=== PATIENT | female | born 1990 | race Caucasian/White ===

== ENCOUNTER 2016-09-08 06:36 | Inpatient (IN) | payer MEDICAID ==
[2016-09-08] MEDS ORDERED: OXYTOCIN/NORMAL SALINE 1,000 ML IV PRN ×2 (06:48→06:50)
[2016-09-08] MEDS ORDERED: RINGERS SOLUTION,LACTATED 300 ML IV ONE ×2 (06:48→06:50)
[2016-09-08] MEDS ORDERED: RINGERS SOLUTION,LACTATED 1,000 ML IV PRN ×2 (06:48→06:50)
[2016-09-08 07:04] LABS: APPEARANCE,URINE CLOUDY; BILIRUBIN,URINE NEGATIVE (NEGATIVE); GLUCOSE, URINE NEGATIVE (NEGATIVE); KETONES,URINE NEGATIVE (NEGATIVE); LEUKOCYTE ESTERASE,URINE LARGE (NEGATIVE); NITRITE,URINE NEGATIVE (NEGATIVE); PROTEIN,URINE NEGATIVE (NEGATIVE); URINE SPECIFIC GRAVITY 1.008; UROBILINOGEN,URINE NEGATIVE mg/dL (<2.0)
[2016-09-08 07:28] LABS: URINE BARBITURATES SCREEN NEGATIVE; URINE METHADONE SCREEN NEGATIVE; URINE PHENCYCLIDINE SCREEN NEGATIVE
[2016-09-08] MEDS ORDERED: OXYTOCIN/NORMAL SALINE 20 UNIT/1,000 ML RTUINJ ONE (07:42)
[2016-09-08 07:49] LABS: ABSOLUTE EOSINOPHILS # (AUTO) 0.1 10^3/uL (0.0-0.6); ABSOLUTE LYMPHOCYTES (AUTO) 1.9 10^3/uL (0.5-4.7); ABSOLUTE NEUT (AUTO) 5.8 10^3/uL (1.7-8.2); BASOPHILS % (AUTO) 0.4 % (0-2); EOSINOPHILS % (AUTO) 1.3 % (0-6); HEMATOCRIT 33.5 % (36.0-47.0); HEMOGLOBIN 10.6 g/dL (12.0-15.5); HGB HCT DIFFERENCE -1.7; LYMPHOCYTES % (AUTO) 21.4 % (13-45); MEAN CORPUSCULAR HEMOGLOBIN 28.2 pg (27.0-33.4); MEAN CORPUSCULAR HGB CONC 31.7 g/dL (32.0-36.0); MEAN CORPUSCULAR VOLUME 89 fl (80-97); MONOCYTES % (AUTO) 11.5 % (3-13); RED BLOOD COUNT 3.77 10^6/uL (3.72-5.28); RED CELL DISTRIBUTION WIDTH 13.6 % (11.5-14.0); SEGMENTED NEUTROPHILS % (AUTO) 65.4 % (42-78); WHITE BLOOD COUNT 8.9 10^3/uL (4.0-10.5)
--- NOTE | 2016-09-08 08:01 | L&D Flow Sheet ---
LD Flowsheet Datetime Report Generated by CPN: 09/08/2016 08:00 Datetime: 09/08/2016 07:05 Patient Care IV/Blood Work: IV Started; IV Bolus Started; IV Infusing per Order; New IV Bag Hung (Ashely Errichiello, RN) Datetime: 09/08/2016 07:02 Procedures: Consents Signed (Ashely Long RN)
--- NOTE | 2016-09-08 10:01 | L&D Flow Sheet ---
LD Flowsheet Datetime Report Generated by CPN: 09/08/2016 10:00 Datetime: 09/08/2016 09:15 Monitor Mode: External; Palpation (BRIONNA De Los Santos) Frequency (min): 3-5 (BRIONNA De Los Santos) Quality: Mild (BRIONNA De Los Santos) Duration (sec): 60-90 (BRIONNA De Los Santos) Duration Criteria: Less than Two 120 Second Contractions (BRIONNA De Los Santos) Pattern: Normal: <= 5 Contractions in 10 Minutes (Marla Thompson RNC) Resting Tone (Palpate): Relaxed (Marla Thompson RNC) Monitor Mode: External US (BRIONNA De Los Santos) FHR Baseline Rate : 125 (BRIONNA De Los Santos) Variability: Moderate 6-25 bpm (Marla Thompson RNC) Accelerations: 15X15 (Marla Thompson RNC) Decelerations: None (BRIONNA De Los Santos) Pitocin (milliunit): Pitocin Increased to (milliunits) @ 4 (Marla Jay, RNC) Datetime: 09/08/2016 09:12 NBP Sys/Faye/Mean (mmHg): 111 (QS system process) : 70 (QS system process) : 84 (QS system process) Pulse: 90 (QS system process) LaborFlag: Labor (QS system process) Datetime: 09/08/2016 09:00 Monitor Mode: External; Palpation (Marla Thompson RNC) Frequency (min): 2-4 (Marla Thompson RNC) Quality: Mild (Marla Thompson RNC) Duration (sec): 50-80 (Marla Thompson, RNC) Duration Criteria: Less than Two 120 Second Contractions (Marla Thompson RNC) Pattern: Normal: <= 5 Contractions in 10 Minutes (Marla Thompson RNC) Resting Tone (Palpate): Relaxed (Marla Thompson RNC) Monitor Mode: External US (Marla Thompson RNC) FHR Baseline Rate : 125 (Marla Thompson RNC) Variability: Moderate 6-25 bpm (Marla Thompson RNC) Accelerations: None (Marla Jay, RNC) Decelerations: None (Marla Jay, RNC) Datetime: 09/08/2016 08:45 Monitor Mode: External; Palpation (Marla Jay, RNC) Frequency (min): 5-8 (Marla Jay, RNC) Quality: Mild (Marla Jay, RNC) Duration (sec): 50-80 (Marla Jay, RNC) Duration Criteria: Less than Two 120 Second Contractions (Marla Jay, RNC) Pattern: Normal: <= 5 Contractions in 10 Minutes (Marla Jay, RNC) Resting Tone (Palpate): Relaxed (Marla Jay, RNC) Monitor Mode: External US (Marla Jay, RNC) FHR Baseline Rate : 135 (Marla Jay, RNC) Variability: Moderate 6-25 bpm (Marla Jay, RNC) Accelerations: None (Marla Jay, RNC) Decelerations: None (Marla Jay, RNC) Datetime: 09/08/2016 08:42 NBP Sys/Faye/Mean (mmHg): 107 (QS system process) : 65 (QS system process) : 81 (QS system process) Pulse: 96 (QS system process) LaborFlag: Labor (QS system process) Datetime: 09/08/2016 08:30 Monitor Mode: External; Palpation (Marla Jay, RNC) Frequency (min): 3-5 (Marla Jay, RNC) Quality: Mild (Marla Jay, RNC) Duration (sec): 50-80 (Marla Jay, RNC) Duration Criteria: Less than Two 120 Second Contractions (Marla Jay, RNC) Pattern: Normal: <= 5 Contractions in 10 Minutes (Marla Jay, RNC) Resting Tone (Palpate): Relaxed (Marla Jay, RNC) Monitor Mode: External US (Marla Jay, RNC) FHR Baseline Rate : 135 (Marla Jay, RNC) Variability: Moderate 6-25 bpm (Marla Jay, RNC) Accelerations: None (Marla Jay, RNC) Decelerations: None (Marla Jay, RNC) Datetime: 09/08/2016 08:15 Pitocin (milliunit): Pitocin Started (milliunits) @ 2; Pitocin 20 Units in 1000ml NS (BRIONNA De Los Santos) Datetime: 09/08/2016 08:12 NBP Sys/Faye/Mean (mmHg): 114 (QS system process) : 68 (QS system process) : 85 (QS system process) Pulse: 88 (QS system process) Pain Scale: 0 (BRIONNA De Los Santos) Pain Presence: None/Denies (BRIONNA De Los Santos) Level of Consciousness: Fully Conscious (BRIONNA De Los Santos) DTR's/Clonus: DTRs 2+; No Clonus (BRIONNA De Los Santos) Headache: Denies (BRIONNA De Los Santos) Breath Sounds, Left: Clear and Equal (BRIONNA De Los Santos) Breath Sounds, Right: Clear and Equal (BRIONNA De Los Santos) Nausea/Vomiting: Denies (BRIONNA De Los Santos) RUQ Epigastric Pain: Denies (Marla Thompson RNJess) Comfort Measures: Breathing/Relaxation; Rocking Chair (BRIONNA De Los Santos) Instructional Method: Verbal; Patient Instructed; Family/Support Person Instructed; Verbalized Understanding (BRIONNA De Los Santos) Plan of Care: Plan of Care Discussed; Labor; Induction (BRIONNA De Los Santos) Unit Routine: [place] to Room; Call Banks; Bed; Handwashing; Bathroom Privileges (BRIONNA De Los Santos) Labor/Induction: Labor Stages; Induction; Artificial Rupture of Membranes; Interventions; Activity (BRIONNA De Los Santos) Pain Management: Epidural; PRN Medications; Pain Scale/Goals; Comfort Measures (BRIONNA De Los Santos) Medications: Antibiotics; Pitocin (BRIONNA De Los Santos) LaborFlag: Labor (QS system process) Datetime: 09/08/2016 08:00 Monitor Mode: External; Palpation (BRIONNA De Los Santos) Frequency (min): 5-9 (BRIONNA De Los Santos) Quality: Mild (BRIONNA De Los Santos) Duration (sec): 60-90 (BRIONNA De Los Santos) Duration Criteria: Less than Two 120 Second Contractions (BRIONNA De Los Santos) Pattern: Normal: <= 5 Contractions in 10 Minutes (BRIONNA De Los Santos) Resting Tone (Palpate): Relaxed (BRIONNA De Los Santos) Monitor Mode: External US (BRIONNA De Los Santos) FHR Baseline Rate : 135 (BRIONNA De Los Santos) Variability: Moderate 6-25 bpm (BRIONNA De Los Santos) Accelerations: None (BRIONNA De Los Santos) Decelerations: None (BRIONNA De Los Santos)
--- NOTE | 2016-09-08 12:00 | L&D Flow Sheet ---
LD Flowsheet Datetime Report Generated by CPN: 09/08/2016 12:00 Datetime: 09/08/2016 11:15 Monitor Mode: External; Palpation (Marla Jay, RNC) Frequency (min): 3-4 (Marla Jay, RNC) Quality: Mild/Moderate (Marla Jay, RNC) Duration (sec): 60-90 (Marla Jay, RNC) Duration Criteria: Less than Two 120 Second Contractions (Marla Jay, RNC) Pattern: Normal: <= 5 Contractions in 10 Minutes (Marla Jay, RNC) Resting Tone (Palpate): Relaxed (Marla Jay, RNC) Monitor Mode: External US (Marla Jay, RNC) FHR Baseline Rate : 135 (Marla Jay, RNC) Variability: Moderate 6-25 bpm (Marla Jay, RNC) Accelerations: 15X15 (Marla Jay, RNC) Decelerations: None (Marla Jay, RNC) Datetime: 09/08/2016 11:00 Monitor Mode: External; Palpation (Marla Jay, RNC) Frequency (min): 3-4 (Marla Jay, RNC) Quality: Mild/Moderate (Marla Jay, RNC) Duration (sec): 60-90 (Marla Jay, RNC) Duration Criteria: Less than Two 120 Second Contractions (Marla Jay, RNC) Pattern: Normal: <= 5 Contractions in 10 Minutes (Marla Jay, RNC) Resting Tone (Palpate): Relaxed (Marla Jay, RNC) Monitor Mode: External US (Marla Jay, RNC) FHR Baseline Rate : 135 (Marla Jay, RNC) Variability: Moderate 6-25 bpm (Marla Jay, RNC) Accelerations: 15X15 (Marla Jay, RNC) Decelerations: None (Marla Jay, RNC) Pitocin (milliunit): Pitocin Increased to (milliunits) @ 16 (Marla Jay, RNC) Datetime: 09/08/2016 10:45 Monitor Mode: External; Palpation (Marla Jay, RNC) Frequency (min): 3-6 (Marla Thompson, RNC) Quality: Mild/Moderate (Marla Thompson, RNC) Duration (sec): 60-90 (Marla Jay, RNC) Duration Criteria: Less than Two 120 Second Contractions (Marladorothy Thompson, RNC) Pattern: Normal: <= 5 Contractions in 10 Minutes (Marlaria Thompson, RNC) Resting Tone (Palpate): Relaxed (Marla Thompson, RNC) Monitor Mode: External US (Marla Thompson, RNC) FHR Baseline Rate : 145 (Marla Jay, RNC) Variability: Moderate 6-25 bpm (Marla Jay, RNC) Accelerations: None (Marlaria Thompson, RNC) Decelerations: None (Marla Thompson, RNC) Pitocin (milliunit): Pitocin Increased to (milliunits) @ 14 (Marla Thompson, RNC) Datetime: 09/08/2016 10:30 Monitor Mode: External; Palpation (Marla Thompson, RNC) Frequency (min): 3-6 (Marla Thompson, RNC) Quality: Mild (Marla Thompson, RNC) Duration (sec): 60-90 (Marla Jay, RNC) Duration Criteria: Less than Two 120 Second Contractions (Marla Jay, RNC) Pattern: Normal: <= 5 Contractions in 10 Minutes (Marla Thompson, RNC) Resting Tone (Palpate): Relaxed (Marla Thompson, RNC) Monitor Mode: External US (Marla Thompson, RNC) FHR Baseline Rate : 135 (Marla Jay, RNC) Variability: Moderate 6-25 bpm (Marla Jay, RNC) Accelerations: 15X15 (Marla Thompson, RNC) Decelerations: None (Marla Thompson, RNC) Pitocin (milliunit): Pitocin Increased to (milliunits) @ 12 (Marla Thompson, RNC) Datetime: 09/08/2016 10:15 Monitor Mode: External; Palpation (Marla Thompson, RNC) Frequency (min): 3-6 (Marla Thompson, RNC) Quality: Mild/Moderate (Marla Thompson, RNC) Duration (sec): 60-120 (Marlaria Thompson, RNC) Duration Criteria: Less than Two 120 Second Contractions (Marla Thompson, RNC) Pattern: Normal: <= 5 Contractions in 10 Minutes (Marla Thompson, RNC) Resting Tone (Palpate): Relaxed (Marla Thompson, RNC) Monitor Mode: External US (Marla Thompson, RNC) FHR Baseline Rate : 135 (Marla Thompson, RNC) Variability: Moderate 6-25 bpm (Marla Thompson, RNC) Accelerations: 15X15 (Marla Thompson, RNC) Decelerations: None (Marla Thompson, RNC) Pitocin (milliunit): Pitocin Increased to (milliunits) @ 10 (Marla Thompson, RNC) Datetime: 09/08/2016 10:00 Frequency (min): 4-5 (Marla Thompson, ANTIONETTEC) Duration (sec): 60-120 (Marla Thompson, RNC) Duration Criteria: Less than Two 120 Second Contractions (Marla Thompson RNC) Pattern: Normal: <= 5 Contractions in 10 Minutes (Marla Thompson RNC) Resting Tone (Palpate): Relaxed (BRIONNA De Los Santos) Monitor Mode: External US (BRIONNA De Los Santos) FHR Baseline Rate : 135 (BRIONNA De Los Santos) Variability: Moderate 6-25 bpm (Marla Thompson RNC) Accelerations: 15X15 (BRIONNA De Los Santos) Decelerations: None (BRIONNA De Los Santos)
--- NOTE | 2016-09-08 13:28 | L&D Progress Notes ---
PROGRESS NOTES Datetime Report Generated by CPN: 09/08/2016 13:27 PROGRESS NOTE Impression Other: IOL-Stable Procedures: Sterile Vag Exam Plan: Continue Present Management Informed Consent Obtained: Vaginal Delivery Vital Signs : Reviewed; Within Normal Limits Comment: S: pt. reports mild discomfort with contractions Late Entry for noon O: VSS, pit @ 18mu/min, Cat I tracing, Cervix and contractions as stated above A: IOL @ 41wga for posterm -stable P: continue IOL, pt. desires to wait on AROM, will re-evaluate in 2hrs or earlier prn. Pt. asked questions and verbalized understanding. VAGINAL EXAM Dilatation: 3 Effacement: 70 Station: -1 Contractions: 2-3.5 MEMBRANES Membranes: Intact FETUS A Monitoring: External US FHR Category: Category I SIGNATURE SIGNATURE: [id number] Assignment: Mary Ann Lamb MD Signature: with User ID: [email or web address] : with User ID: [email or web address]
--- NOTE | 2016-09-08 14:00 | L&D Flow Sheet ---
LD Flowsheet Datetime Report Generated by CPN: 09/08/2016 14:00 Datetime: 09/08/2016 13:45 Monitor Mode: External; Palpation (Marla Thompson, RNC) Frequency (min): 2.5-4 (Marla Jay, RNC) Quality: Mild/Moderate (Marla Jay, RNC) Duration (sec): 60-120 (Marla Jay, RNC) Duration Criteria: Less than Two 120 Second Contractions (Marla Jay, RNC) Pattern: Normal: <= 5 Contractions in 10 Minutes (Marla Jay, RNC) Resting Tone (Palpate): Relaxed (Marla Jay, RNC) Monitor Mode: External US (Marla Jay, RNC) FHR Baseline Rate : 135 (Marla Jay, RNC) Variability: Moderate 6-25 bpm (Marla Jay, RNC) Accelerations: 15X15 (Marla Jay, RNC) Decelerations: None (Marla Jay, RNC) Datetime: 09/08/2016 13:42 NBP Sys/Faye/Mean (mmHg): 111 (QS system process) : 66 (QS system process) : 83 (QS system process) Pulse: 94 (QS system process) LaborFlag: Labor (QS system process) Datetime: 09/08/2016 13:30 Monitor Mode: External; Palpation (Marla Thompson RNC) Frequency (min): 2.5-4 (Marla Thompson, RNC) Quality: Mild (Marla Thompson RNC) Duration (sec): 60-90 (Marla Thompson, RNC) Duration Criteria: Less than Two 120 Second Contractions (Marla Thompson, RNC) Pattern: Normal: <= 5 Contractions in 10 Minutes (Marla Thompson, RNC) Resting Tone (Palpate): Relaxed (Marla Thompson RNC) Monitor Mode: External US (Marla Thompson RNC) FHR Baseline Rate : 135 (Marla Thompson, RNC) Variability: Moderate 6-25 bpm (Marla Thompson, RNC) Accelerations: 15X15 (Marla Thompson, RNC) Decelerations: None (Marla Jay, RNC) Pitocin (milliunit): Pitocin Increased to (milliunits) @ 20 (Marla Jay, RNC) Datetime: 09/08/2016 13:15 Monitor Mode: External; Palpation (Marla Jay, RNC) Frequency (min): 3-6 (Marla Jay, RNC) Quality: Mild (Marla Jay, RNC) Duration (sec): 60-90 (Marla Jay, RNC) Duration Criteria: Less than Two 120 Second Contractions (Marla Jay, RNC) Pattern: Normal: <= 5 Contractions in 10 Minutes (Marla Jay, RNC) Resting Tone (Palpate): Relaxed (Marla Jay, RNC) Monitor Mode: External US (Marla Jay, RNC) FHR Baseline Rate : 135 (Marla Jay, RNC) Variability: Moderate 6-25 bpm (Marla Jay, RNC) Accelerations: 15X15 (Marla Jay, RNC) Decelerations: None (Marla Jay, RNC) Datetime: 09/08/2016 13:00 Monitor Mode: External; Palpation (Marla Jay, RNC) Frequency (min): 2-3 (Marla Jay, RNC) Quality: Mild (Marla Jay, RNC) Duration (sec): 60-90 (Marla Jay, RNC) Duration Criteria: Less than Two 120 Second Contractions (Marla Jay, RNC) Pattern: Normal: <= 5 Contractions in 10 Minutes (Marla Jay, RNC) Resting Tone (Palpate): Relaxed (Marla Jay, RNC) Monitor Mode: External US (Marla Jay, RNC) FHR Baseline Rate : 135 (Marla Jay, RNC) Variability: Moderate 6-25 bpm (Marla Jay, RNC) Accelerations: 15X15 (Marla Jay, RNC) Decelerations: None (Marla Jay, RNC) Pitocin (milliunit): Pitocin Increased to (milliunits) @ 18 (Marla Jay, RNC) Datetime: 09/08/2016 12:43 NBP Sys/Faye/Mean (mmHg): 135 (QS system process) : 73 (QS system process) : 89 (QS system process) LaborFlag: Labor (QS system process) Datetime: 09/08/2016 12:30 Monitor Mode: External; Palpation (Marla Jay, RNC) Frequency (min): 2.5-3 (Marla Jay, RNC) Quality: Mild/Moderate (Marla Jay, RNC) Duration (sec): 60-90 (Marla Jay, RNC) Duration Criteria: Less than Two 120 Second Contractions (Marla Jay, RNC) Pattern: Normal: <= 5 Contractions in 10 Minutes (Marla Jay, RNC) Resting Tone (Palpate): Relaxed (Marla Jay, RNC) Monitor Mode: External US (Marla Jay, RNC) FHR Baseline Rate : 135 (Marla Jay, RNC) Variability: Moderate 6-25 bpm (Marla Jay, RNC) Accelerations: 15X15 (Marla Jay, RNC) Decelerations: None (Marla Jay, RNC) Datetime: 09/08/2016 12:15 Monitor Mode: External; Palpation (Marla Jay, RNC) Frequency (min): 2-4 (Marla Jay, RNC) Quality: Mild (Marla Jay, RNC) Duration (sec): 60-90 (Marla Jay, RNC) Duration Criteria: Less than Two 120 Second Contractions (Marla Jay, RNC) Pattern: Normal: <= 5 Contractions in 10 Minutes (Marla Jay, RNC) Resting Tone (Palpate): Relaxed (Marla Jay, RNC) Monitor Mode: External US (Marla Jay, RNC) FHR Baseline Rate : 135 (Marla Thompson RNC) Variability: Moderate 6-25 bpm (Marla Thompson, RNC) Accelerations: None (Marla Thompson, RNC) Decelerations: None (Marla Thompson, RNC) Datetime: 09/08/2016 12:12 NBP Sys/Faye/Mean (mmHg): 111 (QS system process) : 66 (QS system process) : 83 (QS system process) Pulse: 78 (QS system process) LaborFlag: Labor (QS system process) Datetime: 09/08/2016 12:00 Monitor Mode: External; Palpation (Marla Thompson RNC) Frequency (min): 2-3 (Marla Thompson RNC) Quality: Mild (Marla Thompson RNC) Duration (sec): 60-90 (Marla Thompson, RNC) Duration Criteria: Less than Two 120 Second Contractions (Marla Thompson RNC) Pattern: Normal: <= 5 Contractions in 10 Minutes (Marla Thompson RNC) Resting Tone (Palpate): Relaxed (BRIONNA De Los Santos) Monitor Mode: External US (BRIONNA De Los Santos) FHR Baseline Rate : 140 (BRIONNA De Los Santos) Variability: Moderate 6-25 bpm (BRIONNA De Los Santos) Accelerations: 15X15 (BRIONNA De Los Santos) Decelerations: None (BRIONNA De Los Santos)
--- NOTE | 2016-09-08 16:00 | L&D Flow Sheet ---
LD Flowsheet Datetime Report Generated by CPN: 09/08/2016 16:00 Datetime: 09/08/2016 15:41 IV/Blood Work: IV Bolus Started; IV Bag Number @ 3 (BRIONNA De Los Santos) Datetime: 09/08/2016 14:45 Monitor Mode: External; Palpation (BRIONNA De Los Santos) Frequency (min): 3-5 (BRIONNA De Los Santos) Quality: Mild/Moderate (BRIONNA De Los Santos) Duration (sec): 60-90 (Marla Jay, RNC) Duration Criteria: Less than Two 120 Second Contractions (Marla Jay, RNC) Pattern: Normal: <= 5 Contractions in 10 Minutes (Marla Jay, RNC) Resting Tone (Palpate): Relaxed (Marla Jay, RNC) Monitor Mode: External US (Marla Jay, RNC) FHR Baseline Rate : 135 (Marla Jay, RNC) Variability: Moderate 6-25 bpm (Marla Jay, RNC) Accelerations: 15X15 (Marla Jay, RNC) Decelerations: None (Marla Jay, RNC) Datetime: 09/08/2016 14:30 Monitor Mode: External; Palpation (Marla Jay, RNC) Frequency (min): 3-5 (Marla Jay, RNC) Quality: Mild/Moderate (Marla Jay, RNC) Duration (sec): 60-90 (Marla Jay, RNC) Duration Criteria: Less than Two 120 Second Contractions (Marla Jay, RNC) Pattern: Normal: <= 5 Contractions in 10 Minutes (Marla Jay, RNC) Resting Tone (Palpate): Relaxed (Marla Jay, RNC) Monitor Mode: External US (Marla Jay, RNC) FHR Baseline Rate : 135 (Marla Jay, RNC) Variability: Moderate 6-25 bpm (Marla Jay, RNC) Accelerations: 15X15 (Marla Jay, RNC) Decelerations: None (Marla Jay, RNC) Datetime: 09/08/2016 14:15 Monitor Mode: External; Palpation (Marla Jay, RNC) Frequency (min): 2-4 (Marla Jay, RNC) Quality: Mild/Moderate (Marla Jay, RNC) Duration (sec): 60-120 (Marla Jay, RNC) Duration Criteria: Less than Two 120 Second Contractions (Marla Jay, RNC) Pattern: Normal: <= 5 Contractions in 10 Minutes (Marla Jay, RNC) Resting Tone (Palpate): Relaxed (Marla Jay, RNC) Monitor Mode: External US (Marla Jay, RNC) FHR Baseline Rate : 135 (Marla Jay, RNC) Variability: Moderate 6-25 bpm (Marla Jay, RNC) Accelerations: 15X15 (Marla Jay, RNC) Decelerations: None (Marla Jay, RNC) Datetime: 09/08/2016 14:00 Monitor Mode: External; Palpation (Marla Jay, RNC) Frequency (min): 3-5 (Marla Jay, RNC) Quality: Mild/Moderate (Marla Jay, RNC) Duration (sec): 60-120 (Marla Jay, RNC) Duration Criteria: Less than Two 120 Second Contractions (BRIONNA De Los Santos) Pattern: Normal: <= 5 Contractions in 10 Minutes (BRIONNA De Los Santos) Resting Tone (Palpate): Relaxed (BRIONNA De Los Santos) Monitor Mode: External US (BRIONNA De Los Santos) FHR Baseline Rate : 145 (BRIONNA De Los Santos) Variability: Moderate 6-25 bpm (BRIONNA De Los Santos) Accelerations: 15X15 (BRIONNA De Los Santos) Decelerations: None (BRIONNA De Los Santos) Dilatation (cm): 3.5 (BRIONNA De Los Santos) Effacement (%): 50 (BRIONNA De Los Santos) Station: -1 (BRIONNA De Los Santos) Exam by: Dr. Lamb (BRIONNA De Los Santos) Membrane Status: Ruptured (BRIONNA De Los Santos) Membranes Rupture Method: Artificial (BRIONNA De Los Santos) Amniotic Fluid Color: Clear (BRIONNA De Los Santos) Amniotic Fluid Amount: Small (BRIONNA De Los Santos)
[2016-09-08] MEDS ORDERED: BUPIVACAINE HCL 0.25 % INJ/PF (2.5 MG/1 ML) 30 ML VIAL ONE (16:02)
[2016-09-08] MEDS ORDERED: EPHEDRINE SULFATE INJ 50 MG/1 ML AMPULE ONE (16:02)
[2016-09-08] MEDS ORDERED: FENTANYL/BUPIVACAINE/NS/PF 200 MCG/100 ML RTUINJ EPI ONE (16:02)
--- NOTE | 2016-09-08 16:49 | L&D Progress Notes ---
PROGRESS NOTES Datetime Report Generated by CPN: 09/08/2016 16:49 PROGRESS NOTE Procedures: Intrauterine Pressure Catheter Plan: Induction Vital Signs : Reviewed Comment: Pt comfortable with epidural. IUPC placed to guide induction bu mvus. FETUS A FHR Category: Category I FETUS C SIGNATURE: [id number] Signature: with User ID: [email or web address]
--- NOTE | 2016-09-08 18:00 | L&D Flow Sheet ---
LD Flowsheet Datetime Report Generated by CPN: 09/08/2016 18:00 Datetime: 09/08/2016 17:50 NBP Sys/Faye/Mean (mmHg): 92 (QS system process) : 60 (QS system process) : 72 (QS system process) Pulse: 96 (QS system process) LaborFlag: Labor (QS system process) Datetime: 09/08/2016 17:33 NBP Sys/Faye/Mean (mmHg): 108 (QS system process) : 65 (QS system process) : 79 (QS system process) Pulse: 76 (QS system process) LaborFlag: Labor (QS system process) Datetime: 09/08/2016 17:28 NBP Sys/Faye/Mean (mmHg): 92 (QS system process) : 55 (QS system process) : 69 (QS system process) Pulse: 110 (QS system process) LaborFlag: Labor (QS system process) Datetime: 09/08/2016 17:21 NBP Sys/Faye/Mean (mmHg): 92 (QS system process) : 54 (QS system process) : 69 (QS system process) Pulse: 92 (QS system process) LaborFlag: Labor (QS system process) Datetime: 09/08/2016 17:16 NBP Sys/Faye/Mean (mmHg): 94 (QS system process) : 51 (QS system process) : 68 (QS system process) Pulse: 93 (QS system process) LaborFlag: Labor (QS system process) Datetime: 09/08/2016 17:15 Monitor Mode: Internal (Marla Jay, RNC) Frequency (min): 2-3 (Marla Jay, RNC) Duration (sec): 60-90 (Marla Jay, RNC) Duration Criteria: Less than Two 120 Second Contractions (Marla Jay, RNC) Pattern: Normal: <= 5 Contractions in 10 Minutes (Marla Jay, RNC) Resting Tone (Palpate): Relaxed (Marla Jay, RNC) Monitor Mode: External US (Marla Ajy, RNC) FHR Baseline Rate : 130 (Marla Jay, RNC) Variability: Moderate 6-25 bpm (Marla Jay, RNC) Accelerations: None (Marla Jay, RNC) Decelerations: None (Marla Jay, RNC) Datetime: 09/08/2016 17:11 NBP Sys/Faye/Mean (mmHg): 95 (QS system process) : 50 (QS system process) : 66 (QS system process) Pulse: 100 (QS system process) LaborFlag: Labor (QS system process) Datetime: 09/08/2016 17:06 NBP Sys/Faye/Mean (mmHg): 96 (QS system process) : 54 (QS system process) : 70 (QS system process) Pulse: 101 (QS system process) LaborFlag: Labor (QS system process) Datetime: 09/08/2016 17:02 NBP Sys/Faye/Mean (mmHg): 102 (QS system process) : 56 (QS system process) : 73 (QS system process) Pulse: 96 (QS system process) LaborFlag: Labor (QS system process) Datetime: 09/08/2016 17:00 Monitor Mode: Internal (Marla Jay, RNC) Frequency (min): 3-5 (Marla Jay, RNC) Quality: Mild/Moderate (Marla Jay, RNC) Duration (sec): 60-90 (Marla Jay, RNC) Duration Criteria: Less than Two 120 Second Contractions (Marla Jay, RNC) Pattern: Normal: <= 5 Contractions in 10 Minutes (Marla Jay, RNC) Resting Tone (Palpate): Relaxed (Marla Jay, RNC) Resting Tone IUP (mmHg): 20 (Marla Jay, RNC) Intensity IUP (mmHg): 50 (Marla Jay, RNC) Contraction Comments: EXO=558 (Marla Jay, RNC) Monitor Mode: External US (Marla Jay, RNC) FHR Baseline Rate : 140 (Marla Jay, RNC) Variability: Moderate 6-25 bpm (Marla Jay, RNC) Accelerations: 15X15 (Marla Jay, RNC) Decelerations: None (Marla Jay, RNC) Datetime: 09/08/2016 16:53 NBP Sys/Faye/Mean (mmHg): 93 (QS system process) : 61 (QS system process) : 71 (QS system process) Pulse: 104 (QS system process) LaborFlag: Labor (QS system process) Datetime: 09/08/2016 16:48 NBP Sys/Faye/Mean (mmHg): 106 (QS system process) : 63 (QS system process) : 79 (QS system process) Pulse: 108 (QS system process) LaborFlag: Labor (QS system process) Datetime: 09/08/2016 16:44 Monitor Mode: External; Palpation (BRIONNA De Los Santos) Frequency (min): 3-5 (BRIONNA De Los Santos) Quality: Mild/Moderate (BRIONNA De Los Santos) Duration (sec): 60-90 (BRIONNA De Los Santos) Duration Criteria: Less than Two 120 Second Contractions (BRIONNA De Los Santos) Pattern: Normal: <= 5 Contractions in 10 Minutes (BRIONNA De Los Santos) Resting Tone (Palpate): Relaxed (Marla Jay, RNC) Monitor Mode: External US (Marla Thompson, RNC) FHR Baseline Rate : 125 (Marla Thompson, RNC) Variability: Moderate 6-25 bpm (Marla Thompson, RNC) Accelerations: 15X15 (Marla Thompson, RNC) Decelerations: None (Marla Thompson, RNC) Datetime: 09/08/2016 16:43 Monitor Interventions for UA: IUPC Inserted (Marla Thompson, RNC) Pitocin (milliunit): Pitocin Decreased to (milliunits) @ 10 (Marla Thompson, RNC) Datetime: 09/08/2016 16:42 NBP Sys/Faye/Mean (mmHg): 111 (QS system process) : 59 (QS system process) : 79 (QS system process) Pulse: 103 (QS system process) LaborFlag: Labor (QS system process) Datetime: 09/08/2016 16:36 NBP Sys/Faye/Mean (mmHg): 95 (QS system process) : 59 (QS system process) : 71 (QS system process) Pulse: 105 (QS system process) LaborFlag: Labor (QS system process) Datetime: 09/08/2016 16:35 I/O Interventions: Lewis Cath Inserted (Marla Jay, RNC) Datetime: 09/08/2016 16:34 NBP Sys/Faye/Mean (mmHg): 90 (QS system process) : 53 (QS system process) : 67 (QS system process) Pulse: 137 (QS system process) LaborFlag: Labor (QS system process) Datetime: 09/08/2016 16:32 NBP Sys/Faye/Mean (mmHg): 96 (QS system process) : 53 (QS system process) : 71 (QS system process) Pulse: 90 (QS system process) LaborFlag: Labor (QS system process) Datetime: 09/08/2016 16:30 NBP Sys/Faye/Mean (mmHg): 104 (QS system process) : 56 (QS system process) : 72 (QS system process) Pulse: 122 (QS system process) Monitor Mode: External; Palpation (BRIONNA De Los Santos) Frequency (min): 3-5 (BRIONNA De Los Santos) Quality: Mild/Moderate (BRIONNA De Los Santos) Duration (sec): 60-90 (BRIONNA De Los Santos) Duration Criteria: Less than Two 120 Second Contractions (BRIONNA De Los Santos) Pattern: Normal: <= 5 Contractions in 10 Minutes (BRIONNA De Los Santos) Resting Tone (Palpate): Relaxed (BRIONNA De Los Santos) Monitor Mode: External US (BRIONNA De Los Santos) FHR Baseline Rate : 135 (Marla Thompson, RNC) Variability: Moderate 6-25 bpm (Marla Thompson, RNC) Accelerations: None (Marla Thompson, RNC) Decelerations: None (Marla Thompson, RNC) LaborFlag: Labor (QS system process) Datetime: 09/08/2016 16:28 NBP Sys/Faye/Mean (mmHg): 108 (QS system process) : 56 (QS system process) : 73 (QS system process) Pulse: 108 (QS system process) LaborFlag: Labor (QS system process) Datetime: 09/08/2016 16:26 NBP Sys/Faye/Mean (mmHg): 112 (QS system process) : 55 (QS system process) : 78 (QS system process) Pulse: 102 (QS system process) LaborFlag: Labor (QS system process) Datetime: 09/08/2016 16:24 NBP Sys/Faye/Mean (mmHg): 118 (QS system process) : 66 (QS system process) : 87 (QS system process) Pulse: 100 (QS system process) Temperature (F): 98.2 (Marla Thompson [facility]) Temperature (C): 36.8 (QS system process) LaborFlag: Labor (QS system process) Datetime: 09/08/2016 16:22 NBP Sys/Faye/Mean (mmHg): 125 (QS system process) : 78 (QS system process) : 96 (QS system process) Pulse: 112 (QS system process) Epidural Procedure: Test Dose (BRIONNA De Los Santos) LaborFlag: Labor (QS system process) Datetime: 09/08/2016 16:21 Epidural Procedure: Test Dose; Loading Dose (Marla Thompson, RNC) Datetime: 09/08/2016 16:17 Epidural Positioning: Sitting (Marla Thompson, RNC) Datetime: 09/08/2016 16:15 Monitor Mode: External; Palpation (Marla Thompson, RNC) Frequency (min): 3-4 (Marla Thompson, RNC) Quality: Mild/Moderate (Marla Thompson, RNC) Duration (sec): 60-90 (Marla Thompson, RNC) Duration Criteria: Less than Two 120 Second Contractions (Marla Thompson, RNC) Pattern: Normal: <= 5 Contractions in 10 Minutes (Marla Thompson, RNC) Resting Tone (Palpate): Relaxed (Marla Thompson RNC) Monitor Mode: External US (Marla Thompson, RNC) FHR Baseline Rate : 135 (Marla Thompson, RNC) Variability: Moderate 6-25 bpm (Marla Thompson, RNC) Accelerations: 15X15 (Marla Thompson, RNC) Decelerations: None (BRIONNA De Los Santos) Datetime: 09/08/2016 16:06 Procedure Verify: Correct Patient Identity; Correct Side and Site are Marked; Accurate Procedure Consent Form; Agreement on Procedure to be Done; Correct Patient Position; Relevant Images and Results are Properly Labeled and Displayed; Addressed Need to Administer Antibiotics or Fluids for Irrigation; Safety Precautions Based on Patient History or Medication Use (BRIONNA De Los Santos) Anesthesia Plans: Epidural (BRIONNA De Los Santos) Epidural Positioning: Sitting (BRIONNA De Los Santos) Anesthesia Comments: Dr. Guzmán at for epidural placement (BRIONNA De Los Santos) Datetime: 09/08/2016 16:05 Patient Care Comments: Pt back to bed (BRIONNA De Los Santos) Datetime: 09/08/2016 16:00 Monitor Mode: External; Palpation (BRIONNA De Los Santos) Frequency (min): 2-2.5 (BRIONNA De Los Santos) Quality: Moderate (BRIONNA De Los Santos) Duration (sec): 60-120 (BRIONNA De Los Santos) Duration Criteria: Less than Two 120 Second Contractions (BRIONNA De Los Santos) Pattern: Normal: <= 5 Contractions in 10 Minutes (BRIONNA De Los Santos) Resting Tone (Palpate): Relaxed (BRIONNA De Los Santos) Monitor Mode: External US (BRIONNA De Los Santos) FHR Baseline Rate : 135 (BRIONNA De Los Santos) Variability: Moderate 6-25 bpm (BRIONNA De Los Santos) Accelerations: 15X15 (BRIONNA De Los Santos) Decelerations: None (BRIONNA De Los Santos)
--- NOTE | 2016-09-08 20:00 | L&D Flow Sheet ---
LD Flowsheet Datetime Report Generated by CPN: 09/08/2016 20:00 Datetime: 09/08/2016 19:50 NBP Sys/Faye/Mean (mmHg): 125 (QS system process) : 69 (QS system process) : 91 (QS system process) Pulse: 95 (QS system process) LaborFlag: Labor (QS system process) Datetime: 09/08/2016 19:45 Monitor Mode: Internal; Palpation (Mary Ann Seay RN) Frequency (min): 2.5-3 (Mary Ann Field, RN) Quality: Moderate (Mary Ann Seay, RN) Duration (sec): 50-70 (Mary Ann Seay, RN) Resting Tone (Palpate): Relaxed (Mary Ann Seay, RN) Resting Tone IUP (mmHg): 25 (Mary Ann Seay, RN) Intensity IUP (mmHg): 85 (Mary Ann Seay, RN) Contraction Comments: MVU: 225 (Mary Ann Seay, RN) Monitor Mode: External US (Mary Ann Seay, RN) FHR Baseline Rate : 130 (Mary Ann Seay, RN) Variability: Moderate 6-25 bpm (Mary Ann Seay, RN) Accelerations: 15X15 (Mary Ann Seay, RN) Decelerations: None (Mary Ann Seay, RN) Pitocin (milliunit): Pitocin Remains (milliunits) @ 14 (Mary Ann Seay, RN) Datetime: 09/08/2016 19:35 NBP Sys/Faye/Mean (mmHg): 123 (QS system process) : 61 (QS system process) : 86 (QS system process) Pulse: 93 (QS system process) LaborFlag: Labor (QS system process) Datetime: 09/08/2016 19:30 Monitor Mode: External; Palpation (Mary Ann Seay, RN) Frequency (min): 1.5-3.5 (Mary Ann Seay, RN) Quality: Moderate (Mary Ann , RN) Duration (sec): 60-80 (Mary Ann Field, RN) Resting Tone (Palpate): Relaxed (Mary Ann , RN) Resting Tone IUP (mmHg): 25 (Mary Ann Field, RN) Intensity IUP (mmHg): 95 (Mary Ann Field, RN) Contraction Comments: MVU: 195 (Mary Ann , RN) Monitor Mode: External US (Mary Ann Seay, RN) FHR Baseline Rate : 125 (Mary Ann , RN) Variability: Moderate 6-25 bpm (Mary Ann Field, RN) Accelerations: 10X10 (Mary Ann Field, RN) Decelerations: None (Mary Ann , RN) Pitocin (milliunit): Pitocin Increased to (milliunits) @ 16 (Mary Ann , RN) Datetime: 09/08/2016 19:29 Level of Consciousness: Fully Conscious (Mary nAn Seay, RN) DTR's/Clonus: DTRs 1+; No Clonus (Mary Ann , RN) Headache: Denies (Mary Ann Seay, RN) Breath Sounds, Left: Clear and Equal (Mary Ann , RN) Breath Sounds, Right: Clear and Equal (Mary Ann Field, RN) Nausea/Vomiting: Denies (Mary Ann , RN) RUQ Epigastric Pain: Denies (Mary Annpam Seay, RN) Datetime: 09/08/2016 19:20 NBP Sys/Faye/Mean (mmHg): 116 (QS system process) : 63 (QS system process) : 84 (QS system process) Pulse: 101 (QS system process) LaborFlag: Labor (QS system process) Datetime: 09/08/2016 19:15 Monitor Mode: Internal (Mary Ann Seay RN) Frequency (min): 1.5-4 (Mary Ann Seay RN) Quality: Moderate (Mary Ann Seay RN) Duration (sec): 60-90 (Mary Ann Seay RN) Resting Tone (Palpate): Relaxed (Mary Ann Seay RN) Resting Tone IUP (mmHg): 25 (Mary Ann Seay RN) Intensity IUP (mmHg): 85 (Mary Ann Seay RN) Contraction Comments: MVU: 225 (Mary Ann Seay RN) Monitor Mode: External US (Mary Ann Seay RN) FHR Baseline Rate : 135 (Mary Ann Seay RN) Variability: Moderate 6-25 bpm (Mary Ann Seay RN) Accelerations: 15X15 (Mary Ann Seay RN) Decelerations: None (Mary Ann Seay RN) Comments: Report to Basil Frank RN, Arielle Thompsno RNC out._ (BRIONNA De Los Santos) Pitocin (milliunit): Pitocin Remains (milliunits) @ 14 (Mary Ann Seay RN) Datetime: 09/08/2016 19:05 NBP Sys/Faye/Mean (mmHg): 119 (QS system process) : 68 (QS system process) : 88 (QS system process) Pulse: 100 (QS system process) LaborFlag: Labor (QS system process) Datetime: 09/08/2016 19:00 Monitor Mode: Internal (Kaylee Camp, RNC) Frequency (min): 1-3 (Kaylee Camp, RNC) Duration (sec): 50-90 (Kaylee Camp, RNC) Resting Tone (Palpate): Relaxed (Kaylee Camp, RNC) Resting Tone IUP (mmHg): 15 (Kaylee Camp, RNC) Intensity IUP (mmHg): 70 (Kaylee Camp, RNC) Contraction Comments: MVU 250 (Kaylee Camp, RNC) Monitor Mode: External US; Auscultation (Kaylee Camp, RNC) FHR Baseline Rate : 135 (Kaylee Camp, RNC) FHR Baseline Changes: No Baseline Change (Kaylee Camp, RNC) Variability: Moderate 6-25 bpm (Kaylee Camp, RNC) Accelerations: 15X15 (Kaylee Camp, RNC) Decelerations: Variable (Kaylee Camp, RNC) Datetime: 09/08/2016 18:52 Dilatation (cm): 4.5 (Marla Thompson, RNC) Effacement (%): 70 (Marla Thompson, RNC) Station: -1 (Marla Thompson, RNC) Exam by: Dr. Lamb (Marla Thompson, RNC) Vaginal Bleeding: Normal Show (Marla Thompson, RNC) Datetime: 09/08/2016 18:49 NBP Sys/Faye/Mean (mmHg): 103 (QS system process) : 57 (QS system process) : 75 (QS system process) Pulse: 97 (QS system process) LaborFlag: Labor (QS system process) Datetime: 09/08/2016 18:45 Monitor Mode: Internal (Marla Jay, RNC) Frequency (min): 3-5 (Marla Jay, RNC) Duration (sec): 60-90 (Marla Jay, RNC) Pattern: Normal: <= 5 Contractions in 10 Minutes (Marla Jay, RNC) Resting Tone (Palpate): Relaxed (Marla Jay, RNC) Resting Tone IUP (mmHg): 25 (Marla Jay, RNC) Intensity IUP (mmHg): 65 (Marla Jay, RNC) Contraction Comments: MVU: 265 (Marla Jay, RNC) Monitor Mode: External US (Marla Jay, RNC) FHR Baseline Rate : 135 (Marla Jay, RNC) Variability: Moderate 6-25 bpm (Marla Jay, RNC) Accelerations: None (Marla Jay, RNC) Decelerations: None (Marla Jay, RNC) Datetime: 09/08/2016 18:35 NBP Sys/Faye/Mean (mmHg): 101 (QS system process) : 58 (QS system process) : 76 (QS system process) Pulse: 88 (QS system process) LaborFlag: Labor (QS system process) Datetime: 09/08/2016 18:30 Monitor Mode: Internal (Marla Jay, RNC) Frequency (min): 3-5 (Marla Jay, RNC) Duration (sec): 60-90 (Marla Jay, RNC) Duration Criteria: Less than Two 120 Second Contractions (Marla Jay, RNC) Resting Tone IUP (mmHg): 25 (Marla Jay, RNC) Intensity IUP (mmHg): 45 (Marla Jay, RNC) Contraction Comments: MVU: 190 (Marla Jay, RNC) Monitor Mode: External US (Marla Jay, RNC) FHR Baseline Rate : 125 (Marla Jay, RNC) Variability: Moderate 6-25 bpm (Marla Jay, RNC) Accelerations: None (Marla Jay, RNC) Decelerations: None (Marla Jay, RNC) Datetime: 09/08/2016 18:20 Patient Position/Activity: Peanut Ball; Right Extreme (Marla Jay, RNC) Datetime: 09/08/2016 18:15 Monitor Mode: Internal (Marla Jay, RNC) Frequency (min): 4-5 (Marla Jay, RNC) Duration (sec): 60-90 (Marla Jay, RNC) Duration Criteria: Less than Two 120 Second Contractions (Marla Jay, RNC) Monitor Mode: External US (Marla Jay, RNC) FHR Baseline Rate : 135 (Marla Jay, RNC) Variability: Moderate 6-25 bpm (Marla Jay, RNC) Accelerations: 15X15 (Marla Jay, RNC) Decelerations: None (Marla Jay, RNC) Datetime: 09/08/2016 18:06 NBP Sys/Faye/Mean (mmHg): 117 (QS system process) : 68 (QS system process) : 87 (QS system process) Pulse: 99 (QS system process) LaborFlag: Labor (QS system process) Datetime: 09/08/2016 18:00 Monitor Mode: Internal (BRIONNA De Los Santos) Frequency (min): 4-6 (BRIONNA De Los Santos) Duration (sec): 60-90 (Marla Thompson RNC) Duration Criteria: Less than Two 120 Second Contractions (BRIONNA De Los Santos) Monitor Mode: External US (BRIONNA De Los Santos) FHR Baseline Rate : 145 (Marla Thompson RNC) Variability: Moderate 6-25 bpm (Marla Thompson RNC) Accelerations: 15X15 (Marla Thompson RNC) Decelerations: None (BRIONNA De Los Santos)
[2016-09-08] MEDS ORDERED: MISOPROSTOL 0.2 MG TABLET ONE (21:54)
[2016-09-08] MEDS ORDERED: LIDOCAINE 1% INJ-PF (10 MG/ML) 30 ML SDV ONE (21:54)
--- NOTE | 2016-09-08 22:00 | L&D Flow Sheet ---
LD Flowsheet Datetime Report Generated by CPN: 09/08/2016 22:00 Datetime: 09/08/2016 21:52 Dilatation (cm): 10.0 ([facility], ) Effacement (%): 100 ([facility], ) Station: 2 ([facility], ) Exam by: Dr. Lamb ([facility], ) Datetime: 09/08/2016 21:50 NBP Sys/Faye/Mean (mmHg): 105 (QS system process) : 58 (QS system process) : 77 (QS system process) Pulse: 103 (QS system process) LaborFlag: Labor (QS system process) Datetime: 09/08/2016 21:38 Patient Position/Activity: Right Lateral; Peanut Ball (Mary Ann Field, RN) Datetime: 09/08/2016 21:34 NBP Sys/Faye/Mean (mmHg): 90 (QS system process) : 56 (QS system process) : 67 (QS system process) Pulse: 99 (QS system process) LaborFlag: Labor (QS system process) Datetime: 09/08/2016 21:21 NBP Sys/Faye/Mean (mmHg): 108 (QS system process) : 53 (QS system process) : 75 (QS system process) Pulse: 90 (QS system process) LaborFlag: Labor (QS system process) Datetime: 09/08/2016 21:06 NBP Sys/Faye/Mean (mmHg): 110 (QS system process) : 59 (QS system process) : 79 (QS system process) Pulse: 95 (QS system process) LaborFlag: Labor (QS system process) Datetime: 09/08/2016 20:51 NBP Sys/Faye/Mean (mmHg): 98 (QS system process) : 62 (QS system process) : 74 (QS system process) Pulse: 91 (QS system process) LaborFlag: Labor (QS system process) Datetime: 09/08/2016 20:36 NBP Sys/Faye/Mean (mmHg): 131 (QS system process) : 56 (QS system process) : 80 (QS system process) Pulse: 88 (QS system process) LaborFlag: Labor (QS system process) Datetime: 09/08/2016 20:20 NBP Sys/Faye/Mean (mmHg): 105 (QS system process) : 55 (QS system process) : 69 (QS system process) Pulse: 99 (QS system process) LaborFlag: Labor (QS system process) Datetime: 09/08/2016 20:15 Monitor Mode: Internal; Palpation (Mary Ann Seay RN) Frequency (min): 1.5-3.5 (Mary Ann Seay, RN) Quality: Moderate (Mary Ann Seay, RN) Duration (sec): 50-60 (Mary Ann Seay, RN) Resting Tone (Palpate): Relaxed (Mary Ann Seay, RN) Monitor Mode: External US (Mary Ann Seay, RN) FHR Baseline Rate : 135 (Mary Ann Seay, RN) Variability: Moderate 6-25 bpm (Mary Ann Field, RN) Accelerations: 10X10 (Mary Ann Seay, RN) Decelerations: None (Mary Ann Seay, RN) Pitocin (milliunit): Pitocin Remains (milliunits) @ 16 (Mary Ann Field, RN) Datetime: 09/08/2016 20:05 NBP Sys/Faye/Mean (mmHg): 113 (QS system process) : 69 (QS system process) : 86 (QS system process) Pulse: 107 (QS system process) LaborFlag: Labor (QS system process) Datetime: 09/08/2016 20:00 Monitor Mode: Internal; Palpation (Mary Ann Seay, RN) Frequency (min): 2-3 (Mary Ann Seay RN) Quality: Moderate (Mary Ann Seay RN) Duration (sec): 50-60 (Mary Ann Seay RN) Resting Tone (Palpate): Relaxed (Mary Ann Seay RN) Resting Tone IUP (mmHg): 25 (Mary Ann Seay RN) Intensity IUP (mmHg): 80 (Mary Ann Seay RN) Contraction Comments: MVU: 220 (Mary Ann Seay RN) Monitor Mode: External US (Mary Ann Seay RN) FHR Baseline Rate : 140 (Mary Ann Seay RN) Variability: Moderate 6-25 bpm (Mary Ann Seay RN) Accelerations: 10X10 (Mary Ann Seay RN) Decelerations: Variable (MaryA nn Seay RN) Pitocin (milliunit): Pitocin Remains (milliunits) @ 16 (Mary Ann Seay RN)
[2016-09-09] MEDS ORDERED: MEASLES,MUMPS&RUBELLA VACC/PF 0.5 ML VIAL SUBCUT PRN (00:05)
[2016-09-09] MEDS ORDERED: DIBUCAINE 1% OINTMENT 28 GM TP PRN (00:05)
[2016-09-09] MEDS ORDERED: BENZOCAINE/MENTHOL AEROSOL SPRAY 56 ML TOP PRN (00:05)
[2016-09-09] MEDS ORDERED: DIPH/PERTUSS(ACELL)/TETANUS VAC/PF 0.5 ML SYR (>=10YO) IM PRN (00:05)
[2016-09-09] MEDS ORDERED: ACETAMINOPHEN WITH CODEINE #3 TABLET PO PRN ×2 (00:05)
[2016-09-09] MEDS ORDERED: ZOLPIDEM TARTRATE 5 MG TABLET PO PRN (00:05)
--- NOTE | 2016-09-09 00:48 | Delivery Summary ---
Del Sum A-C Datetime Report Generated by CPN: 09/09/2016 00:48 ADMISSION DATA Chief Complaint: Scheduled Induction of Labor Indication for Induction: Postterm Admission Impression: Postterm, Intrauterine Admit Provider Comments: pit indcution DELIVERY PERSONNEL Delivery Doctor:: Mary Ann Lamb, MD Labor and Delivery Nurse:: Mary Ann Field, microsoft exchange administrator Nurse:: Arleen Onel, RN MATERNAL INFORMATION Delivery Anesthesia: Epidural Medications After Delivery: Pitocin Bolus-Please Comment; Pitocin Drip 20 Units/1000ml NSS Estimated Blood Loss (ml): 200 Maternal Complications: None Provider Comments: Pt progressed to over intact perineum of female infant with apgars 9 and 9. Head delivered OA. Shoulders and body delivered easily. 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 Cord clamped and cut. Placenta spont and intact. Mom and baby doing well. LABOR SUMMARY EDC: 09/01/2016 00:00 No. Babies in Womb: 1 Attempted: No Labor Anesthesia: Epidural LABOR INFORMATION Reason for Induction: Post Dates Onset of Labor: 09/08/2016 08:12 Complete Dilatation: 09/08/2016 21:52 Oxytocin: Induction Group B Beta Strep: negative Antibiotics # of Doses: 0 Steroids Given: None Reason Steroids Not Administered: Not Applicable; Indication MEMBRANES Membranes Rupture Method: Artificial Rupture of Membranes: 09/08/2016 14:00 Length of Rupture (hr): 8.13 Amniotic Fluid Color: Clear Amniotic Fluid Amount: Small Amniotic Fluid Odor: Normal STAGES OF LABOR Stage 1 hr: 13 Stage 1 min: 40 Stage 2 hr: 0 Stage 2 min: 16 Stage 3 hr: 0 Stage 3 min: 3 Total Time in Labor hr: 13 Total Time in Labor min: 59 VAGINAL DELIVERY Episiotomy: None Laceration Extension: N/A Laceration Type: None Laceration Repair: Not Applicable BABY A INFORMATION Delivery Date/Time: 09/08/2016 22:08 Method of Delivery: Vaginal Born in Route : No : N/A Forceps: N/A Vacuum Extraction: N/A Shoulder Dystocia : No PRESENTATION/POSITION BABY A Presentation: Cephalic Cephalic Presentation: Vertex Vertex Position: Left Occipital Anterior Breech Presentation: N/A PLACENTA INFORMATION BABY A Placenta Delivery Time : 09/08/2016 22:11 Placenta Method of Delivery: Spontaneous Placenta Status: Delivered SCORES BABY A Heart Rate 1 min: >100 bpm Resp Effort 1 min: Good Cry Reflex Irritability 1 min: Cough or Sneeze or Pulls Away Muscle Tone 1 min: Active Motion Color 1 min: Body Mccamey, Extremities Blue SCORE 1 MIN: 9 Heart Rate 5 min: >100 bpm Resp Effort 5 min: Good Cry Reflex Irritability 5 min: Cough or Sneeze or Pulls Away Muscle Tone 5 min: Active Motion Color 5 min: Body Mccamey, Extremities Blue SCORE 5 MIN: 9 INFORMATION BABY A Gestational Age at Delivery: 41.0 Gestational Status: Late Term- 41- 41.6 Weeks Outcome : Liveborn Condition : Stable Sex: Female IDENTIFICATION BABY A Verification Date/Time: 09/08/2016 22:23 ID Band Number: [id number] Mother's Name Verified: Yes Infant RN Verifying : R Elpidio, RNC Additional Verifying Personnel: D Matthew, US WEIGHT/LENGTH BABY A Infant Birthweight (gm): 3250 Weight (lb): 7 Infant Weight (oz): 3 Infant Length (in): 19.50 Length (cm): 49.53 CORD INFORMATION BABY A No. 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
--- NOTE | 2016-09-09 01:15 | Admission Physical ---
Datetime Report Generated by CPN: 09/09/2016 01:14 CURRENT ADMISSION Hx Assessment: The History has been Reviewed and is Current Chief Complaint: Scheduled Induction of Labor Indication for Induction: Postterm Admit Plan: Initiate Labor Induction Protocol ALLERGIES Medication Allergies: No Medication Allergies: No Known Allergies (09/08/2016) Latex: No Latex Allergies Food Allergies: n/a Environmental Allergies: n/a OBSTETRICAL HISTORY EDC: 09/01/2016 00:00 : 3 Para: 1 Term: 1 IAB: 1 Livin Gestational Diabetes: No Rh Sensitization: No Incompetent Cervix: No MASOUD: No Infertility: No ART Treatment: No Uterine Anomaly: No IUGR: No Hx Previous C/S: No Macrosomia: No Hx Loss/Stillborn: No PIH: No Hx : No Placenta Previa/Abruption: No Depression/PP Depression: No PTL/PROM: No Post Hemorrhage: No Current Procedures: Ultrasound; NST Obstetrical History Comments: G1:EAB 2008 G2: 2010 G3: current preganancy SEE RECORDS Alcohol: No Marijuana : No Cocaine: No Other Illicit Drugs: No Cigarettes: Former Smoker. [id number] MEDICAL HISTORY Diabetes: No Pulmonary Disease (Asthma, TB): No Breast Disease: No Hypertension: No Brain Picker Surgery: No Heart Disease: No Hosp/Surgery: Yes Autoimmune Disorder: No Anesthetic Complications: No Kidney Disease: No Abnormal Pap Smear: No Neuro/Epilepsy: No Psychiatric Disorders: No Other Medical Diseases: No Hepatitis/Liver Disease: No Significant Family History: No Varicosities/Phlebitis: No Trauma/Violence : No Thyroid Dysfunction: No INFECTIOUS HISTORY Gonorrhea: No Genital Herpes: No Chlamydia: No Tuberculosis: No Syphilis: No Hepatitis: No HIV/AIDS Exposure: No Rash or Viral Illness: No HPV: No PHYSICAL EXAM General: Normal HEENT: Normal Neurologic: Normal Thyroid: Normal Heart: Normal Lungs: Normal Breast: Normal Back: Normal Abdomen: Normal Genitourinary Exam: Normal Extremities: Normal DTRs: Normal Pelvic Type: Adequate Physical Exam Comments: AROM clear VAGINAL EXAM Dilatation: 3 Effacement: 70 Station: -1 Contraction Comments: 2-3.5 MEMBRANES Membranes: Intact FETUS A EGA: 41.0 Monitoring: External US FHR Category: Category I Admit Comment: pit indcution PLANS FOR LABOR AND DELIVERY Labor and Delivery: None Pain Management: None Feeding Preference: Breast Benefit of Breast Feed Discussed: Yes Circumcision: N/A INFORMED CONSENT Informed Consent Obtained: Vaginal Delivery Signature: with User ID: [email or web address]
[2016-09-09] MEDS: IBUPROFEN 800 MG TABLET PO SCH ×3 (06:26→22:42)
--- NOTE | 2016-09-09 07:00 | L&D Flow Sheet ---
LD Flowsheet Datetime Report Generated by CPN: 09/09/2016 07:00 Datetime: 09/09/2016 00:04 NBP Sys/Faye/Mean (mmHg): 109 (QS system process) : 57 (QS system process) : 79 (QS system process) Pulse: 121 (QS system process) Datetime: 09/09/2016 00:00 Stage of : Recovery (Mayr Ann Seay RN) Temperature (F): 99.1 (Mary Ann Seay RN) Temperature (C): 37.3 (QS system process) Temperature Route: Axillary (Mary Ann Seay, RN) Datetime: 09/08/2016 23:50 NBP Sys/Faye/Mean (mmHg): 126 (QS system process) : 66 (QS system process) : 91 (QS system process) Pulse: 129 (QS system process) Datetime: 09/08/2016 23:45 Stage of : Recovery (Mary Ann Field, RN) Datetime: 09/08/2016 23:30 Stage of : Recovery (Mary Ann Field, RN) Datetime: 09/08/2016 23:15 Stage of : Recovery (Mary Ann Field, RN) Datetime: 09/08/2016 23:04 NBP Sys/Faye/Mean (mmHg): 110 (QS system process) : 64 (QS system process) : 82 (QS system process) Pulse: 121 (QS system process) Datetime: 09/08/2016 23:00 Stage of : Recovery (Mary Ann Field, RN) Datetime: 09/08/2016 22:49 NBP Sys/Faye/Mean (mmHg): 106 (QS system process) : 65 (QS system process) : 78 (QS system process) Pulse: 118 (QS system process) Datetime: 09/08/2016 22:45 Stage of : Recovery (Mary Ann Field, RN) Datetime: 09/08/2016 22:35 NBP Sys/Faye/Mean (mmHg): 111 (QS system process) : 68 (QS system process) : 85 (QS system process) Pulse: 133 (QS system process) Datetime: 09/08/2016 22:30 Stage of : Recovery (Mary Ann Field, RN) Datetime: 09/08/2016 22:20 NBP Sys/Faye/Mean (mmHg): 129 (QS system process) : 75 (QS system process) : 92 (QS system process) Pulse: 125 (QS system process) Datetime: 09/08/2016 22:15 Stage of : Recovery (Mary Ann Field, RN) Datetime: 09/08/2016 22:06 NBP Sys/Faye/Mean (mmHg): 133 (QS system process) : 95 (QS system process) : 108 (QS system process) Pulse: 113 (QS system process) LaborFlag: Labor (QS system process) Datetime: 09/08/2016 22:01 Pushing: Coached on Pushing; Urge to Push (Mary Ann Field, RN) Pushing Position: Pushing with Contractions (Mary Ann Field, RN) Datetime: 09/08/2016 22:00 Monitor Mode: Internal; Palpation (Mary Ann Field, RN) Frequency (min): 1.5-3.5 (Mary Ann Field, RN) Quality: Moderate to Strong (Mary Ann Field, RN) Duration (sec): 50-60 (Mary Ann Field, RN) Resting Tone (Palpate): Relaxed (Mary Ann Field, RN) Resting Tone IUP (mmHg): 25 (Mary Ann Field, RN) Intensity IUP (mmHg): 70 (Mary Ann Field, RN) Contraction Comments: MVU: 250 (Mary Ann Field, RN) Monitor Mode: External US (Mary Ann Field, RN) FHR Baseline Rate : 130 (Mary Ann Field, RN) Variability: Moderate 6-25 bpm (Mary Ann Field, RN) Accelerations: 15X15 (Mary Ann Field, RN) Decelerations: None (Mary Ann Field, RN) Pitocin (milliunit): Pitocin Remains (milliunits) @ 16 (Mary Ann Field, RN) Datetime: 09/08/2016 21:58 I/O Interventions: Lewis Discontinued (Mary Ann Field, RN) Datetime: 09/08/2016 21:52 Dilatation (cm): 10.0 (Mary Ann Seay, RN) Effacement (%): 100 (Mary Ann Seay, RN) [facility] 2 [facility] Exam by: Adonis ([facility], [facility] Datetime: 09/08/2016 21:51 Communication Comments: Dr. Lamb at bedside ([facility] Datetime: 09/08/2016 21:50 NBP Sys/Faye/Mean (mmHg): 105 (QS system process) : 58 (QS system process) : 77 (QS system process) Pulse: 103 (QS system process) LaborFlag: Labor (QS system process) Datetime: 09/08/2016 21:45 Monitor Mode: Internal; Palpation (Mary Ann Field, RN) Frequency (min): 2-3 (Mary Ann Field, RN) Quality: Moderate to Strong (Mary Ann Field, RN) Duration (sec): 50-60 (Mary Ann Field, RN) Resting Tone (Palpate): Relaxed (Mary Ann Field, RN) Resting Tone IUP (mmHg): 25 (Mary Ann Field, RN) Intensity IUP (mmHg): 80 (Mary Ann Field, RN) Contraction Comments: MVU: 220 (Mary Ann Field, RN) Monitor Mode: External US (Mary Ann Field, RN) FHR Baseline Rate : 130 (Mary Ann Field, RN) Variability: Moderate 6-25 bpm (Mary Ann Field, RN) Accelerations: 15X15 (Mary Ann Field, RN) Decelerations: Variable (Mary Ann Field, RN) Pitocin (milliunit): Pitocin Remains (milliunits) @ 16 (Mary Ann Field, RN) Datetime: 09/08/2016 21:38 Patient Position/Activity: Right Lateral; Peanut Ball (Mary Ann Field, RN) Datetime: 09/08/2016 21:34 NBP Sys/Faye/Mean (mmHg): 90 (QS system process) : 56 (QS system process) : 67 (QS system process) Pulse: 99 (QS system process) LaborFlag: Labor (QS system process) Datetime: 09/08/2016 21:30 Monitor Mode: Internal; Palpation (Mary Ann Seay RN) Frequency (min): 2-3 (Mary Ann Seay RN) Quality: Moderate to Strong (Mary Ann Seay RN) Duration (sec): 50-60 (Mary Ann Seay RN) Resting Tone (Palpate): Relaxed (Mary Ann Seay RN) Resting Tone IUP (mmHg): 25 (Mary Ann Seay, RN) Intensity IUP (mmHg): 80 (Mary Ann Seay, RN) Contraction Comments: MVU: 220 (Mary Ann Seay RN) Monitor Mode: External US (Mary Ann Seay RN) FHR Baseline Rate : 130 (Mary Ann Seay RN) Variability: Moderate 6-25 bpm (Mary Ann Seay RN) Accelerations: 15X15 (Mary Ann Seay RN) Decelerations: None (Mary Ann Seay RN) Pitocin (milliunit): Pitocin Remains (milliunits) @ 16 (Mary Ann Seay RN) Datetime: 09/08/2016 21:21 NBP Sys/Faye/Mean (mmHg): 108 (QS system process) : 53 (QS system process) : 75 (QS system process) Pulse: 90 (QS system process) LaborFlag: Labor (QS system process) Datetime: 09/08/2016 21:15 Monitor Mode: Internal; Palpation (Mary Ann Seay RN) Frequency (min): 2-3.5 (Mary Ann Seay RN) Quality: Moderate to Strong (Mary Ann Seay RN) Duration (sec): 50-60 (Mary Ann Seay RN) Resting Tone (Palpate): Relaxed (Mary Ann Seay RN) Resting Tone IUP (mmHg): 25 (Mary Ann Seay RN) Intensity IUP (mmHg): 80 (Mary Ann Seay RN) Contraction Comments: MVU: 225 (Mary Ann Seay RN) Monitor Mode: External US (Mary Ann Seay RN) FHR Baseline Rate : 130 (Mary Ann Seay RN) Variability: Moderate 6-25 bpm (Mary Ann Seay, RN) Accelerations: 15X15 (Mary Ann Seay, RN) Decelerations: Variable (Mary Ann Seay, RN) Pitocin (milliunit): Pitocin Remains (milliunits) @ 16 (Mary Ann Seay, RN) Datetime: 09/08/2016 21:06 NBP Sys/Faye/Mean (mmHg): 110 (QS system process) : 59 (QS system process) : 79 (QS system process) Pulse: 95 (QS system process) LaborFlag: Labor (QS system process) Datetime: 09/08/2016 21:00 Monitor Mode: External; Palpation (Mary Ann Seay, RN) Frequency (min): 2.5-4 (Mary Ann Seay, RN) Quality: Moderate to Strong (Mary Ann Seay, RN) Duration (sec): 50-60 (Mary Ann Seay, RN) Resting Tone (Palpate): Relaxed (Mary Ann Seay, RN) Resting Tone IUP (mmHg): 25 (Mary Ann Seay, RN) Intensity IUP (mmHg): 85 (Mary Ann Seay, RN) Contraction Comments: MVU: 175 (Mary Ann Seay, RN) Monitor Mode: External US (Mary Ann Seay, RN) FHR Baseline Rate : 145 (Mary Ann Seay, RN) Variability: Moderate 6-25 bpm (Mary Ann Seay, RN) Accelerations: 10X10 (Mary Ann Seay, RN) Decelerations: Early; Variable (Mary Ann Seay, RN) Pitocin (milliunit): Pitocin Remains (milliunits) @ 16 (Mary Ann Seay, RN) Datetime: 09/08/2016 20:51 NBP Sys/Faye/Mean (mmHg): 98 (QS system process) : 62 (QS system process) : 74 (QS system process) Pulse: 91 (QS system process) LaborFlag: Labor (QS system process) Datetime: 09/08/2016 20:45 Monitor Mode: Internal; Palpation (Mary Ann Seay, RN) Frequency (min): 2-3.5 (Mary Ann Seay, RN) Quality: Moderate to Strong (Mary Ann Seay RN) Duration (sec): 40-60 (Mary Ann Field, RN) Resting Tone (Palpate): Relaxed (Mary Ann Field, RN) Resting Tone IUP (mmHg): 25 (Mary Ann Field, RN) Intensity IUP (mmHg): 85 (Mary Ann Field, RN) Contraction Comments: MVU: 245 [facility] Monitor Mode: External US (Mary Ann Field, RN) FHR Baseline Rate : 130 (Mary Ann Field, RN) Variability: Moderate 6-25 bpm (Mary Ann [facility], RN) Accelerations: 10X10 ([facility]) Decelerations: Early; Variable [facility] Pitocin (milliunit): Pitocin Remains (milliunits) @ 16 ([facility], RN) Datetime: 09/08/2016 20:36 NBP Sys/Faye/Mean (mmHg): 131 (QS system process) : 56 (QS system process) : 80 (QS system process) Pulse: 88 (QS system process) LaborFlag: Labor (QS system process) Datetime: 09/08/2016 20:30 Monitor Mode: Internal; Palpation (Mary Ann Seay, RN) Frequency (min): 1.5-4.5 (Mary Ann Seay, RN) Quality: Moderate (Mary Ann Seay, RN) Duration (sec): 50-60 (Mary Ann Seay, RN) Resting Tone (Palpate): Relaxed (Mary Ann Seay, RN) Resting Tone IUP (mmHg): 25 (Mary Ann Seay, RN) Intensity IUP (mmHg): 90 (Mary Ann Seay, RN) Contraction Comments: MVU: 275 (Mary Ann Seay, RN) Monitor Mode: External US (Mary Ann Seay, RN) FHR Baseline Rate : 135 (Mary Ann Seay, RN) Variability: Moderate 6-25 bpm (Mary Ann Seay, RN) Accelerations: None (Mary Ann Seay, RN) Decelerations: Early (Mary Ann Seay, RN) Pitocin (milliunit): Pitocin Remains (milliunits) @ 16 (Mary Ann Seay, RN) Datetime: 09/08/2016 20:20 NBP Sys/Faye/Mean (mmHg): 105 (QS system process) : 55 (QS system process) : 69 (QS system process) Pulse: 99 (QS system process) LaborFlag: Labor (QS system process) Datetime: 09/08/2016 20:15 Monitor Mode: Internal; Palpation (Mary Ann Field, RN) Frequency (min): 1.5-3.5 (Mary Ann Field, RN) Quality: Moderate (Mary Ann Field, RN) Duration (sec): 50-60 (Mary Ann Field, RN) Resting Tone (Palpate): Relaxed (Mary Ann Field, RN) Monitor Mode: External US (Mary Ann Field, RN) FHR Baseline Rate : 135 (Mary Ann Field, RN) Variability: Moderate 6-25 bpm (Mary Ann Field, RN) Accelerations: 10X10 (Mary Ann Field, RN) Decelerations: None (Mary Ann Field, RN) Pitocin (milliunit): Pitocin Remains (milliunits) @ 16 (Mary Ann Field, RN) Datetime: 09/08/2016 20:05 NBP Sys/Faye/Mean (mmHg): 113 (QS system process) : 69 (QS system process) : 86 (QS system process) Pulse: 107 (QS system process) LaborFlag: Labor (QS system process) Datetime: 09/08/2016 20:00 Monitor Mode: Internal; Palpation (Mary Ann Seay, RN) Frequency (min): 2-3 (Mary Ann Seay, RN) Quality: Moderate (Mary Ann Seay, RN) Duration (sec): 50-60 (Mary Ann , RN) Resting Tone (Palpate): Relaxed (Mary Ann Field, RN) Resting Tone IUP (mmHg): 25 (Mary Ann Field, RN) Intensity IUP (mmHg): 80 (Mary Ann Field, RN) Contraction Comments: MVU: 220 (Mary Ann , RN) Monitor Mode: External US (Mary Ann , RN) FHR Baseline Rate : 140 (Mary Ann Field, RN) Variability: Moderate 6-25 bpm (Mary Ann Field, RN) Accelerations: 10X10 [facility] Decelerations: Variable ([facility], RN) Pitocin (milliunit): Pitocin Remains (milliunits) @ 16 ([facility], RN) Datetime: 09/08/2016 19:50 NBP Sys/Faye/Mean (mmHg): 125 (QS system process) : 69 (QS system process) : 91 (QS system process) Pulse: 95 (QS system process) LaborFlag: Labor (QS system process) Datetime: 09/08/2016 19:45 Monitor Mode: Internal; Palpation (Mary Ann Seay, RN) Frequency (min): 2.5-3 (Mary Ann Seay, RN) Quality: Moderate (Mary Ann Seay, RN) Duration (sec): 50-70 (Mary Ann Seay, RN) Resting Tone (Palpate): Relaxed (Mary Ann Seay, RN) Resting Tone IUP (mmHg): 25 (Mary Ann , RN) Intensity IUP (mmHg): 85 (Mary Ann Seay, RN) Contraction Comments: MVU: 225 (Mary Ann Seay, RN) Monitor Mode: External US (Mary Ann Seay, RN) FHR Baseline Rate : 130 (Mary Ann Seay, RN) Variability: Moderate 6-25 bpm (Mary Ann Field, RN) Accelerations: 15X15 (Mary Ann Field, RN) Decelerations: None (Mary Ann , RN) Pitocin (milliunit): Pitocin Remains (milliunits) @ 14 (Mary Ann Field, RN) Datetime: 09/08/2016 19:35 NBP Sys/Faye/Mean (mmHg): 123 (QS system process) : 61 (QS system process) : 86 (QS system process) Pulse: 93 (QS system process) LaborFlag: Labor (QS system process) Datetime: 09/08/2016 19:30 Monitor Mode: External; Palpation (Mary Ann Seay, RN) Frequency (min): 1.5-3.5 (Mary Ann Seay, RN) Quality: Moderate (Mary Ann Seay, RN) Duration (sec): 60-80 (Mary Ann Seay, RN) Resting Tone (Palpate): Relaxed (Mary Ann Seay, RN) Resting Tone IUP (mmHg): 25 (Mary Ann Seay, RN) Intensity IUP (mmHg): 95 (Mary Ann Seay, RN) Contraction Comments: MVU: 195 (Mary Ann Seay, RN) Monitor Mode: External US (Mary Ann Seay, RN) FHR Baseline Rate : 125 (Mary Ann Seay, RN) Variability: Moderate 6-25 bpm (Mary Ann Seay, RN) Accelerations: 10X10 (Mary Ann Seay, RN) Decelerations: None (Mary Ann Seay, RN) Pitocin (milliunit): Pitocin Increased to (milliunits) @ 16 (Mary Ann Seay, RN) Datetime: 09/08/2016 19:29 Level of Consciousness: Fully Conscious (Mary Ann Field, RN) DTR's/Clonus: DTRs 1+; No Clonus (Mary Ann Field, RN) Headache: Denies (Mary Ann Field, RN) Breath Sounds, Left: Clear and Equal (Mary Ann Field, RN) Breath Sounds, Right: Clear and Equal (Mary Ann Field, RN) Nausea/Vomiting: Denies (Mary Ann Field, RN) RUQ Epigastric Pain: Denies (Mary Ann Field, RN) Datetime: 09/08/2016 19:20 NBP Sys/Fyae/Mean (mmHg): 116 (QS system process) : 63 (QS system process) : 84 (QS system process) Pulse: 101 (QS system process) LaborFlag: Labor (QS system process) Datetime: 09/08/2016 19:15 Monitor Mode: Internal (Mary Ann Field, RN) Frequency (min): 1.5-4 (Mary Ann Field, RN) Quality: Moderate (Mary Ann Field, RN) Duration (sec): 60-90 (Mary Ann Seay, RN) Resting Tone (Palpate): Relaxed (Mary Ann Seay RN) Resting Tone IUP (mmHg): 25 (Mary Ann Seay, RN) Intensity IUP (mmHg): 85 (Mary Ann Seay, RN) Contraction Comments: MVU: 225 (Mary Ann Seay RN) Monitor Mode: External US (Mary Ann Seay RN) FHR Baseline Rate : 135 (Mary Ann Seay RN) Variability: Moderate 6-25 bpm (Mary Ann Seay, RN) Accelerations: 15X15 (Mary Ann Seay, RN) Decelerations: None (Mary Ann Seay, RN) Comments: Report to Basil Frank RN, Arielle Thompson RNC out._ (Marla Thompson RNC) Pitocin (milliunit): Pitocin Remains (milliunits) @ 14 (Mary Ann Seay, ANTIONETTE) Datetime: 09/08/2016 19:05 NBP Sys/Faye/Mean (mmHg): 119 (QS system process) : 68 (QS system process) : 88 (QS system process) Pulse: 100 (QS system process) LaborFlag: Labor (QS system process) Datetime: 09/08/2016 19:00 Monitor Mode: Internal (Kaylee Camp, RNC) Frequency (min): 1-3 (Kaylee Camp, RNC) Duration (sec): 50-90 (Kaylee Camp, RNC) Resting Tone (Palpate): Relaxed (Kaylee Camp, RNC) Resting Tone IUP (mmHg): 15 (Kaylee Camp, RNC) Intensity IUP (mmHg): 70 (Kaylee Camp, RNC) Contraction Comments: MVU 250 (Kaylee Camp, RNC) Monitor Mode: External US; Auscultation (Kaylee Camp, RNC) FHR Baseline Rate : 135 (Kaylee Camp, RNC) FHR Baseline Changes: No Baseline Change (Kaylee Camp, RNC) Variability: Moderate 6-25 bpm (Kaylee Camp, RNC) Accelerations: 15X15 (Kaylee Camp, RNC) Decelerations: Variable (Kaylee Camp, RNC)
[2016-09-09] MEDS: PRENATAL VITAMIN W-O CA NO5/FE FUMARATE/FA CAPSULE PO SCH (10:20)
[2016-09-09] MEDS: DOCUSATE SODIUM 100 MG CAPSULE PO SCH ×2 (10:20→17:51)
[2016-09-09] MEDS: SENNOSIDES/DOCUSATE 8.6-50 MG 1 EACH TABLET PO SCH (10:21)
[2016-09-09] MEDS: FERROUS SULFATE 325 MG TABLET PO SCH ×2 (10:22→17:51)
--- NOTE | 2016-09-09 11:44 | PDOC PROGRESS REPORT ---
Subjective-OB Subjective: Post Delivery Day: 26 year old. Denies any needs at this time. Pt doing well, ambulatory, light bleeding, regular diet and voiding well. No concerns. Physical Exam (OB) Vital Signs: Temp Pulse Resp BP Pulse Ox 97.9 F 91 16 96/53 L 97 09/09/16 07:44 09/09/16 07:44 09/09/16 07:44 09/09/16 07:44 09/09/16 07:44 Intake & Output 09/08/16 09/09/16 09/10/16 06:59 06:59 06:59 Weight 86.75 kg - Lochia Lochia Amount: Small 10-25 ml Lochia Color: Rubra/Red - Abdomen Description: Soft Hernia Present: No Fundal Description: Firm Fundal Height: u/u - u/2 Objective-Diagnostic Laboratory: 09/08/16 07:17 Assessment and Plan(PN) - Assessment and Plan (1) Delivery normal Is this a current diagnosis for this admission?: Yes - Time Spent with Patient Time with patient: Less than 15 minutes Medications reviewed and adjusted accordingly: Yes - Disposition Anticipated Discharge: Home Within: within 24 hours
--- NOTE | 2016-09-09 18:00 | L&D Current Admission ---
Current Admit Datetime Report Generated by CPN: 09/09/2016 18:00 ADMISSION INFORMATION Reason for Admission: Induction of Labor (09/08/2016 07:21:BRIONNA De Los Santos) Chief Complaint: Scheduled Induction of Labor (09/08/2016 07:21:BRIONNA De Los Santos) Medications During : Vitamin (09/08/2016 07:21:BRIONNA De Los Santos) Method of Arrival: Ambulatory (09/08/2016 07:21:BRIONNA De Los Santos) Admitted From: Home (09/08/2016 07:21:BRIONNA De Los Santos) Reason for Induction: Postterm (09/08/2016 07:21:BRIONNA De Los Santos) Records Available: Yes (09/08/2016 07:21:BRIONNA De Los Santos) General Admission Information: Reviewed (09/08/2016 07:21:BRIONNA De Los Santos) General Admission Reviewed By: Arielle STATON (09/08/2016 07:21:BRIONNA De Los Santos) BELONGINGS/ADVANCED DIRECTIVES Valuables/Personal Effects: Purse/Wallet (09/08/2016 07:21:BRIONNA De Los Santos) Disposition of Belongings: Kept with Patient (09/08/2016 07:21:BRIONNA De Los Santos) Advance Direct for Healthcare: No, and Wants No Information (09/08/2016 07:21:BRIONNA De Los Santos) Durable Power of Machine Specialist: Yes (09/08/2016 07:21:BRIONNA De Los Santos) Living Will: No (09/08/2016 07:21:BRIONNA De Los Santos) Organ Donor: No (09/08/2016 07:21:BRIONNA De Los Santos) Pt Rights Information Given: Yes (09/08/2016 07:21:BRIONNA De Los Santos) Pt Understands Pt Rights: Yes (09/08/2016 07:21:BRIONNA De Los Santos) LEARNING ASSESSMENT Knowledge Level: Understands L_D Process (09/08/2016 07:21:BRIONNA De Los Santos) Barriers to Learning: None (09/08/2016 07:21:BRIONNA De Los Santos) Learning Readiness: Motivated (09/08/2016 07:21:BRIONNA De Los Santos) Learns Best By: 1 to 1 Instruction (09/08/2016 07:21:BRIONNA De Los Santos) Learning Needs: Pain Management; Symptoms to Report; Treatment Plan (09/08/2016 07:21:BRIONNA De Los Santos) DOMESTIC VIOLANCE SCREENING Dom Viol Threatened/Hurt: No (09/08/2016 07:21:BRIONNA De Los Santos) Hx of Abuse/Neglect past 2yrs: No (09/08/2016 07:21:BRIONNA De Los Santos) Feel Unsafe Going Home: No (09/08/2016 07:21:BRIONNA De Los Santos) Addt'l Observ Indicating Abuse: No (09/08/2016 07:21:BRIONNA De Los Santos) Reason Unable to Complete Screen: N/A, Screen Completed (09/08/2016 07:21:BRIONNA De Los Santos) Considered Personal Harm/Suicide: No (09/08/2016 07:21:BRIONNA De Los Santos) NUTRITIONAL/FUNCTIONAL SCREENING Problem with Appetite >5 Days: No (09/08/2016 07:21:BRIONNA De Los Santos) Chew/Swallow Difficulties: No (09/08/2016 07:21:BRIONNA De Los Santos) Inappropriate Wt Gain/Loss: No (09/08/2016 07:21:BRIONNA De Los Santos) Presence Skin Breakdown/Ulcer: No (09/08/2016 07:21:BRIONNA De Los Santos) Special Diet: No (09/08/2016 07:21:BRIONNA De Los Santos) Pt Requests Forging Press Operator Visit: No (09/08/2016 07:21:BRIONNA De Los Santos) Hx of Any of the Following?: N/A (09/08/2016 07:21:BRIONNA De Los Santos) New Diagnosis of: N/A (09/08/2016 07:21:BRIONNA De Los Santos) Requires Assist w/Ambulation: No (09/08/2016 07:21:BRIONNA De Los Santos) Uses Assist Device to Ambulate: No (09/08/2016 07:21:BRIONNA De Los Santos) Pt Requires Help w/ADL's: No (09/08/2016 07:21:BRIONNA De Los Santos)
--- NOTE | 2016-09-09 18:01 | L&D General Admission ---
General Admit Datetime Report Generated by CPN: 09/09/2016 18:00 INFORMATION Patient Age: 26 (05/10/2016 23:22:QS system process) EDC: 09/01/2016 00:00 (05/11/2016 00:50:BRIONNA De Los Santos) : 3 (05/11/2016 00:50:Marily Templeton RN) Para: 1 (05/11/2016 00:50:Marily Templeton RN) Term: 1 (05/11/2016 00:50:BRIONNA De Los Santos) Induced Abortions: 1 (05/11/2016 00:50:BRIONNA De Los Santos) Livin (05/11/2016 00:50:BRIONNA De Los Santos) Baby, Number in Womb: 1 (05/11/2016 00:50:BRIONNA De Los Santos) CARE Primary Outside Machinist Helper: [facility] (05/11/2016 00:50:Marily Templeton RN) Adequate Care: Yes (05/11/2016 00:50:Marily Templeton RN) Height (in): 65 (09/08/2016 06:51:QS system process) ALLERGIES Medication Allergy: No (05/11/2016 00:50:Marily Templeton RN) Medication Allergies: No Known Allergies (09/08/2016) (09/08/2016 06:50:QS system process) Latex Allergy: No Latex Allergies (05/11/2016 00:50:Marily Templeton RN) Food Allergies: n/a (05/11/2016 00:50:Marily Templeton RN) Environmental Allergies: n/a (05/11/2016 00:50:Marily Templeton RN) COMMUNICATION Primary Language: Honduran (05/11/2016 00:50:Marily Templeton RN) Medical Tx Preferred Language: Honduran (05/11/2016 00:50:Marily Templeton RN) Honduran Communication Ability: Speaks Honduran; Reads Honduran (05/11/2016 00:50:Marily Templeton RN) Communication Barrier(s): None (05/11/2016 00:50:Marily Templeton RN) DEMOGRAPHICS Address: [address] [place] [address] (05/10/2016 23:22:QS system process) Zipcode: [address] (05/10/2016 23:22:QS system process) Home (05/10/2016 23:22:QS system process) SSN: [id number] (05/10/2016 23:22:QS system process) Next of Kin Name: RYNE DUVALL (05/10/2016 23:22:QS system process) Next of Kin (05/10/2016 23:22:QS system process) Next of Kin Relationship: OR (05/10/2016 23:22:QS system process) Date of : 1990 (05/10/2016 23:22:QS system process) Marital Status: Single (05/10/2016 23:22:QS system process) Sex: Female (05/10/2016 23:22:QS system process) Race: (05/10/2016 23:22:QS system process) Ethnicity: Non- or (05/10/2016 23:22:QS system process) Islam: Other (05/10/2016 23:22:QS system process) FOB Involved: Yes (05/11/2016 00:50:BRIONNA Tenorio) Father of Baby Name: Ryne Duvall (05/11/2016 00:50:BRIONNA Tenorio) DRUG AND ALCOHOL USE Alcohol: No (05/11/2016 00:50:Marily Templeton RN) Cigarettes: Former Smoker. [id number] (05/11/2016 00:50:Marily Templeton RN) Marijuana: No (05/11/2016 00:50:Marily Templeton RN) Cocaine: No (05/11/2016 00:50:Mariyl Templeton RN) Other Illicit Drugs: No (05/11/2016 00:50:Marily Templeton RN) VACCINE HISTORY Influenza Vaccine: No (05/11/2016 00:50:Marily Templeton RN) Pneumococcal Vaccine: No (05/11/2016 00:50:Marily Templeton RN) Tetanus Vaccine: Uncertain (05/11/2016 00:50:Marily Templeton RN) Tdap Vaccine: Uncertain (05/11/2016 00:50:Marily Templeton RN) Hepatitis B Vaccine: Uncertain (05/11/2016 00:50:Marily Templeton RN) Delivery Architect: [facility] (05/11/2016 00:50:Marily Templeton RN) Feeding Preference: Breast (05/11/2016 00:50:Marily Templeton RN) Benefit of Breast Feed Discussed: Yes (05/11/2016 00:50:Marily Templeton RN) Circumcision: N/A (05/11/2016 00:50:Marily Templeton RN) Classes Attended: Yes (05/11/2016 00:50:Marily Templeton RN) Tubal Ligation: No (05/11/2016 00:50:Marily Templeton RN) Tubal Authorization Signed: N/A (05/11/2016 00:50:Marily Templeton RN) Consent: N/A (05/11/2016 00:50:Marily Templeton RN) Consent Signed: N/A (05/11/2016 00:50:Marily Templeton RN) Pain Management Plans: None (05/11/2016 00:50:Marily Templeton RN) Plans for Labor and Delivery: None (05/11/2016 00:50:Marily Templeton RN) Support Person: Chas Duvall (05/11/2016 00:50:Marily Templeton RN) Support Person Relationship: Significant Other (05/11/2016 00:50:Marily Templeton RN) Cultural/Spritual Practice: No (05/11/2016 00:50:Marily Templeton RN) Spir/Cult Dietary Needs: No (05/11/2016 00:50:Marily Templeton RN) LIVING SITUATION/DISCHARGE PLAN Living Arrangements: House (05/11/2016 00:50:Marily Templeton RN) Adequate Access to:: Electric; Heat; Refrigeration; Plumbing/Running water; Phone; Transportation (05/11/2016 00:50:Marily Templeton RN) WIC Program: No (05/11/2016 00:50:Marily Templeton RN) Discharge Cull Grader Person: Chas Duvall (05/11/2016 00:50:Marily Templeton RN) Currently Using Commun Resources: No (05/11/2016 00:50:Marily Templeton RN) Outside Agency/Appeals Coordinator: N/A (05/11/2016 00:50:Marily Templeton RN) Adoption Requested: No (05/11/2016 00:50:Marily Templeton RN) Pt Contact w/infant Post : N/A (05/11/2016 00:50:Marily Templeton RN) LABS Blood Type: A Positive (05/11/2016 00:50:Marily Templeton RN) Antibody Screen: negative (05/11/2016 00:50:Marily Templeton RN) Hemoglobin: 10.6 L (09/08/2016 07:17:QS system process) Hematocrit: 33.5 L (09/08/2016 07:17:QS system process) MCV: 89 (09/08/2016 07:17:QS system process) Group Beta Strep: negative (05/11/2016 00:50:Lianne Gale RN) Gonorrhea: Negative (05/11/2016 00:50:Marily Templeton RN) Chlamydia: Negative (05/11/2016 00:50:Marily Templeton RN) RPR/VDRL: Nonreactive (05/11/2016 00:50:Marily Templeton RN) Hepatitis B: Negative (05/11/2016 00:50:Marily Templeton RN) Rubella: Immune (05/11/2016 00:50:Marily Templeton RN) Varicella: Non Susceptible (05/11/2016 00:50:Marily Templeton RN) OB/PREVIOUS HISTORY Previous Procedures: Ultrasound; NST (05/11/2016 00:50:Marily Templeton RN) Current Procedures: Ultrasound; NST (05/11/2016 00:50:Marily Templeton RN) History of Previous : No (05/11/2016 00:50:Marily Templeton RN) History of Gestational Diabetes: No (05/11/2016 00:50:Marily Templeton RN) History of PIH: No (05/11/2016 00:50:Marily Templeton RN) History of Incompetent Cervix: No (05/11/2016 00:50:Marily Templeton RN) History of Placenta Previa/Abrup: No (05/11/2016 00:50:Marily Templeton RN) History of Macrosomia: No (05/11/2016 00:50:Marily Templeton RN) History of IUGR: No (05/11/2016 00:50:Marily Templeton RN) History of Hemorrhage: No (05/11/2016 00:50:Marily Templeton RN) History of Loss/Stillborn: No (05/11/2016 00:50:Marily Templeton RN) History of : No (05/11/2016 00:50:Marily Templeton RN) History of D (Rh) Sensitization: No (05/11/2016 00:50:Marily Templeton RN) History Recurrent Loss/Stillborn: No (05/11/2016 00:50:Marily Templeton RN) History Depression/PP Depression: No (05/11/2016 00:50:Marily Templeton RN) History of Uterine Anomaly/MASOUD: No (05/11/2016 00:50:Marily Templeton RN) History of Infertility: No (05/11/2016 00:50:Marily Templeton RN) History of ART Treatment: No (05/11/2016 00:50:Marily Templeton RN) History of MASOUD: No (05/11/2016 00:50:Marily Templeton RN) Comments Obstetrical History: G1:EAB 2008 G2: 2010 G3: current preganancy (05/11/2016 00:50:Marily Templeton RN) MEDICAL HISTORY Med Hx Diabetes: No (05/11/2016 00:50:Marily Templeton RN) Med Hx Hypertension: No (05/11/2016 00:50:Marily Jareth, RN) Med Hx Heart Disease: No (05/11/2016 00:50:Marily Templeton RN) Med Hx Autoimmune Disorder: No (05/11/2016 00:50:Marily Templeton RN) Med Hx Kidney Disease/UTI: No (05/11/2016 00:50:Marily Templeton RN) Med Hx Neurologic/Epilepsy: No (05/11/2016 00:50:Marily Templeton RN) Med Hx Psychiatric Disorders: No (05/11/2016 00:50:Marily Templeton RN) Med Hx Hepatitis/Liver Disease: No (05/11/2016 00:50:Marily Templeton RN) Med Hx Varicosities/Phlebitis: No (05/11/2016 00:50:Marily Templeton RN) Med Hx Thyroid Dysfunction: No (05/11/2016 00:50:Marily Templeton RN) Med Hx Trauma/Violence: No (05/11/2016 00:50:Marily Templeton RN) Med Hx Pulmonary (Asthma,TB): No (05/11/2016 00:50:Marily Templeton RN) Med Hx Breast: No (05/11/2016 00:50:Marily Templeton RN) Med Hx ROLL SCALE WORKER Surgery: No (05/11/2016 00:50:Marily Templeton RN) Med Hx Hospitalization/Surgery: Yes (05/11/2016 00:50:Marily Templeton RN) Med Hx Anesthetic Complications: No (05/11/2016 00:50:Marily Templeton RN) Med Hx Abnormal Pap Smear: No (05/11/2016 00:50:Marily Templeton RN) Other Medical Diseases: No (05/11/2016 00:50:Marily Templeton RN) Med Hx Significant Family Hx: No (05/11/2016 00:50:Marily Templeton RN) INFECTIOUS HISTORY Inf Hx Gonorrhea: No (05/11/2016 00:50:Marily Templeton RN) Inf Hx Chlamydia: No (05/11/2016 00:50:Marily Templeton RN) Inf Hx Syphilis: No (05/11/2016 00:50:Marily Templeton RN) Inf Hx HIV/AIDS: No (05/11/2016 00:50:Marily Templeton RN) Inf Hx Human Papilloma Virus: No (05/11/2016 00:50:Marily Templeton RN) Inf Hx Pt/Partner Genital Herpes: No (05/11/2016 00:50:Marily Templeton RN) Inf Hx Tuberculosis/Exposure: No (05/11/2016 00:50:Marily Templeton RN) Inf Hx Hepatitis B,C: No (05/11/2016 00:50:Marily Templeton RN) Inf Hx Rash or Viral Illness: No (05/11/2016 00:50:Marliy Templeton RN) GENETIC HISTORY Gen Hx Age >=35 at [facility]: No (05/11/2016 00:50:Marily Templeton RN) Gen Hx Thalassemia: No (05/11/2016 00:50:Marily Templeton RN) Gen Hx Congenital Heart Defect: No (05/11/2016 00:50:Marily Templeton RN) Gen Hx Neural Tube Defect: No (05/11/2016 00:50:Marily Templeton RN) Gen Hx Down's Syndrome: No (05/11/2016 00:50:Marily Templeton RN) Gen Hx Robert-Sachs: No (05/11/2016 00:50:Marily Templeton RN) Gen Hx Mitul: No (05/11/2016 00:50:Marily Templeton RN) Gen Hx Familial Dysautonomia: No (05/11/2016 00:50:Marily Templeton RN) Gen Hx Sickle Cell Disease/Trait: No (05/11/2016 00:50:Marily Templeton RN) Gen Hx Hemophilia/Blood Disorder: No (05/11/2016 00:50:Marily Templeton RN) Gen Hx Muscular Dystrophy: No (05/11/2016 00:50:Marily Templeton RN) Gen Hx Cystic Fibrosis: No (05/11/2016 00:50:Marily Templeton RN) Gen Hx Huntingtons Chorea: No (05/11/2016 00:50:Marily Templeton RN) Gen Hx Mental Retardation/Autism: No (05/11/2016 00:50:Marily Templeton RN) Gen Hx Tested for Fragile X: No (05/11/2016 00:50:Marily Templeton RN) Gen Hx Other Inher/Chromosomal: No (05/11/2016 00:50:Marily Templeton RN) Gen Hx Maternal Metabolic DO: No (05/11/2016 00:50:Marily Templeton RN) Gen Hx Pt Father or FOB Defect: No (05/11/2016 00:50:Marily Templeton RN) Gen Hx Other Genetic History: No (05/11/2016 00:50:Marily Templeton RN) Gen Hx Drugs/Meds since LMP: No (05/11/2016 00:50:Marily Templeton RN) Gen Hx Medications: prenatals (05/11/2016 00:50:Marily Templeton RN)
--- NOTE | 2016-09-09 18:15 | L&D Care Plan ---
LD CARE PLANS Datetime Report Generated by CPN: 09/09/2016 18:15 Datetime: 09/08/2016 07:27 Pain State: Risk For (BRIONNA De Los Santos) Related To: Labor and Delivery Process; Treatment and Procedures (BRIONNA De Los Santos) Goal(s): Patients Pain will be Assessed and Managed; Patient will Verbalize Adequate Relief of Pain or the Ability to [place] with Current Pain (BRIONNA De Los Santos) Interventions: Assess Pain Severity on Scale of 0 (None) to 5 (Severe); Assess Type, Location and Intensity of Pain Each Time Client Reports Discomfort and Notify Provider if Unusal Pain Develops; Encourage Proper Breathing and Relaxation Techniques; Offer Alternatives Such as Repositioning, Calm Environment, Massages, Diversional Activities, Ice Pack, Splinting, and Ambulation; Administer Analgesics as Ordered; Assist with Epidural Placement as Appropriate; Evaluate Therapeutic Effectiveness of Medication and Treatments (BRIONNA De Los Santos) Outcome: Patient will Report Absence or Relief of Pain Consistent with Established Pain Goal (BRIONNA De Los Santos) Outcome: Patient will have a Decrease in Signs and Symptoms of Discomfort (BRIONNA De Los Santos) Outcome: Pain will be Controlled During Procedures (BRIONNA De Los Santos) Anxiety State: Risk For (BRIONNA De Los Santos) Related To: Labor and Delivery Process; Surgical Procedure; Perceived or Actual Threat to (BRIONNA De Los Santos) Goal(s): Patient will have Decreased Anxiety and be able to Function at Acceptable Levels (BRIONNA De Los Santos) Interventions: Assess Verbal and Nonverbal Behavioral Indicators of Anxiety; Assist Patient to Identify and Verbalize Symptoms of Anxiety; Identify and Demonstrate Techniques to Control Anxiety; Assist Patient with Coping Mechanisms to Manage Anxiety; Provide Theraputic Touch for the Patient; Explain to Patient, Using a Calm Reassuring Approach and Nonmedical Terms, All Activities, Procedures, and Concerns; Instruct Patient and Family about Post Discharge Care, Limitations, Symptoms to Report and Resources Available (BRIONNA De Los Santos) Outcome: Patient will Identify, Verbalize and Demonstrate Techniques to Control Anxiety (BRIONNA De Los Santos) Outcome: Patient's Posture, Facial Expressions, Gestures and Activity Level will Reflect Decreased Anxiety (BRIONNA De Los Santos) Outcome: Patient will Verbalize a Sense of Control and/or Acceptance of the Situation (BRIONNA De Los Santos) Outcome: Patient will Identify and Utilize Support Person (BRIONNA De Los Santos) Knowledge Deficit State: Not Applicable (BRIONNA De Los Santos) Infection State: Risk For (BRIONNA De Los Santos) Related To: Prolonged Labor or Induction (BRIONNA De Los Santos) Goal(s): The Patient will be Free of Infection, Vital Signs Stable and Lab Work within Normal Parameters (BRIONNA De Los Santos) Interventions: Instruct and Reinforce Proper Handwashing, Hygiene, and Care Techniques to Patient and Family; Monitor Vital Signs; Monitor Patient for the Following Signs of Infection: Fever, Abdominal Tenderness, Unusual Discharge; Monitor Aminiotic Fluid, Urine and Lochia for Color and Odor; Observe Wounds, Incisions and Invasive Line Sites for Redness, Drainage and Edema; Assess IV Sites per Hospital Policy; Monitor Lab and Test Results and Notify Provider of Abnormal Findings; Assess Nutritional Status and Promote Good Nutrition (BRIONNA De Los Santos) Outcome: Patient will Remain Free of Infection (BRIONNA De Los Santos) Outcome: Infection will be Recognized Early to Allow for Prompt Treatment (BRIONNA De Los Santos) Outcome: Patient will have Vital Signs Within Expected Range (BRIONNA De Los Santos) Fluid Volume State: Risk For (BRIONNA De Los Santos) Related To: Prolonged Labor or Induction (BRIONNA De Los Santos) Goal(s): Patient will Achieve and Maintain a Balanced Fluid Volume Status; Hemodynamically Stable (BRIONNA De Los Santos) Interventions: Monitor Vital Signs; Auscultate Breath Sounds; Monitor Patient for Skin Turgor, Mucous Membranes, Dry Skin, Weakness, Headaches and Confusion; Provide Oral Fluids as Ordered; Initiate and Maintain Intravenous Fluids as Ordered; Monitor Intake and Output as Indicated Per Patient Status; Accurately Measure Blood Loss; Monitor Lab and Test Results as Obtained and Notify Provider of Abnormal Findings; Monitor Patient's Weight (BRIONNA De Los Santos) Outcome: Patient will have Clear Lung Sounds (BRIONNA De Los Santos) Outcome: Patient will have Vital Signs within Expected Range (BRIONNA De Los Santos) Outcome: Urine Output will be within Expected Range (BRIONNA De Los Santos) Outcome: Patient will have Minimal Generalized or Upper Extremity Edema (BRIONNA De Los Santos) Injury State: Risk For (BRIONNA De Los Santos) Related To: Labor and Delivery Process (BRIONNA De Los Santos) Goal(s): Patient will Remain Free from Injury (BRIONNA De Los Santos) Interventions: Monitoring as per Hospital Protocol; Assess Neurological Status; Perform Risk Assessment of Patients with Induction and ; Perform Fall Risk Assessment and Prevention per Hospital Protocol; Perform DVT Risk Assessment and Prophylaxis per Hospital Protocol; Ensure that Oxygen, Suction, and Resuscitation Medications and Equipment are Readily Available; Confirm Patient ID Prior to Procedure(s) and Medication Administration per Hospital Policy (BRIONNA De Los Santos) Outcome: Successful Fall Risk Prevention (BRIONNA De Los Santos) Outcome: Patient will Deliver Infant without Adverse Sequela (BRIONNA De Los Santos) Outcome: Patient's Neurological Status will Remain Stable (BRIONNA De Los Santos) Impaired Skin Integrity State: Risk For (BRIONNA De Los Santos) Related To: Vaginal Delivery (BRIONNA De Los Santos) Goal(s): Patient will Maintain Optimal Skin Integrity, Free of Breakdown, Injury or Infection (BRIONNA De Los Santos) Interventions: Complete Screening for Pressure Ulcer Risk and Initiate Protocol per Hospital Policy; Monitor Site of Skin Impairment for Color Changes, Redness, Swelling, Warmth, Pain or Other Signs of Infection; Encourage and Assist with Position Changes; Monitor Patient's Mobility Status; Provide Adequate Nutrition and Fluids; Teach Patient Appropriate Hygienic Care; Teach Patient/Family Skin Care Management (BRIONNA De Los Santos) Outcome: Patient will not have Evidence of Injury Such as Skin Breakdown, Scrapes, Cuts, or Bruising (Marla Thompson [facility]) Outcome: Patient will Report Any Altered Sensation or Pain at Site of Skin Impairment (Marla Thompson [facility]) Outcome: Patients Incisions and Wounds will be without Signs or Symptoms of Infection (Marla Thompson [facility]) Outcome: Patient will Demonstrate Understanding of Plan to Heal Skin and Prevent Reinjury and Verbalize Risk Factors (Marla Thompson [facility]) Parenting Impaired State: Not Applicable [facility] Nutrition State: Not Applicable [facility] Grieving State: Not Applicable (Marla Thompson, RNC) Additional Care Plan State: Not Applicable BRIONNA Harrison)
[2016-09-10] MEDS: IBUPROFEN 800 MG TABLET PO SCH (05:32)
--- NOTE | 2016-09-10 06:01 | L&D Current Admission ---
Current Admit Datetime Report Generated by CPN: 09/10/2016 06:00 ADMISSION INFORMATION Reason for Admission: Induction of Labor (09/08/2016 07:21:BRIONNA De oLs Santos) Chief Complaint: Scheduled Induction of Labor (09/08/2016 07:21:BRIONNA De Los Santos) Medications During : Vitamin (09/08/2016 07:21:BRIONNA De Los Santos) Method of Arrival: Ambulatory (09/08/2016 07:21:BRIONNA De Los Santos) Admitted From: Home (09/08/2016 07:21:BRIONNA De Los Santos) Reason for Induction: Postterm (09/08/2016 07:21:BRIONNA De Los Santos) Records Available: Yes (09/08/2016 07:21:BRIONNA De Los Santos) General Admission Information: Reviewed (09/08/2016 07:21:BRIONNA De Los Santos) General Admission Reviewed By: Arielle STATON (09/08/2016 07:21:BRIONNA De Los Santos) BELONGINGS/ADVANCED DIRECTIVES Valuables/Personal Effects: Purse/Wallet (09/08/2016 07:21:BRIONNA De Los Santos) Disposition of Belongings: Kept with Patient (09/08/2016 07:21:BRIONNA De Los Santos) Advance Direct for Healthcare: No, and Wants No Information (09/08/2016 07:21:BRIONNA De Los Santos) Durable Power of Parts Interpreter: Yes (09/08/2016 07:21:BRIONNA De Los Santos) Living Will: No (09/08/2016 07:21:BRIONNA De Los Santos) Organ Donor: No (09/08/2016 07:21:BRIONNA De Los Santos) Pt Rights Information Given: Yes (09/08/2016 07:21:BRIONNA De Los Santos) Pt Understands Pt Rights: Yes (09/08/2016 07:21:BRIONNA De Los Santos) LEARNING ASSESSMENT Knowledge Level: Understands L_D Process (09/08/2016 07:21:BRIONNA De Los Santos) Barriers to Learning: None (09/08/2016 07:21:BRIONNA De Los Santos) Learning Readiness: Motivated (09/08/2016 07:21:BRIONNA De Los Santos) Learns Best By: 1 to 1 Instruction (09/08/2016 07:21:BRIONNA De Los Santos) Learning Needs: Pain Management; Symptoms to Report; Treatment Plan (09/08/2016 07:21:BRIONNA De Los Santos) DOMESTIC VIOLANCE SCREENING Dom Viol Threatened/Hurt: No (09/08/2016 07:21:BRIONNA De Los Santos) Hx of Abuse/Neglect past 2yrs: No (09/08/2016 07:21:BRIONNA De Los Santos) Feel Unsafe Going Home: No (09/08/2016 07:21:BRIONNA De Los Santos) Addt'l Observ Indicating Abuse: No (09/08/2016 07:21:BRIONNA De Los Santos) Reason Unable to Complete Screen: N/A, Screen Completed (09/08/2016 07:21:BRIONNA De Los Santos) Considered Personal Harm/Suicide: No (09/08/2016 07:21:BRIONNA De Los Santos) NUTRITIONAL/FUNCTIONAL SCREENING Problem with Appetite >5 Days: No (09/08/2016 07:21:BRIONNA De Los Santos) Chew/Swallow Difficulties: No (09/08/2016 07:21:BRIONNA De Los Santos) Inappropriate Wt Gain/Loss: No (09/08/2016 07:21:BRIONNA De Los Santos) Presence Skin Breakdown/Ulcer: No (09/08/2016 07:21:BRIONNA De Los Santos) Special Diet: No (09/08/2016 07:21:BRIONNA De Los Santos) Pt Requests Pipe Straightener Visit: No (09/08/2016 07:21:BRIONNA De Los Santos) Hx of Any of the Following?: N/A (09/08/2016 07:21:BRIONNA De Los Santos) New Diagnosis of: N/A (09/08/2016 07:21:BRIONNA De Los Santos) Requires Assist w/Ambulation: No (09/08/2016 07:21:BRIONNA De Los Santos) Uses Assist Device to Ambulate: No (09/08/2016 07:21:BRIONNA De Los Santos) Pt Requires Help w/ADL's: No (09/08/2016 07:21:BRIONNA De Los Santos)
--- NOTE | 2016-09-10 06:01 | L&D General Admission ---
General Admit Datetime Report Generated by CPN: 09/10/2016 06:00 INFORMATION Patient Age: 26 (05/10/2016 23:22:QS system process) EDC: 09/01/2016 00:00 (05/11/2016 00:50:BRIONNA De Los Santos) : 3 (05/11/2016 00:50:Marily Templeton RN) Para: 1 (05/11/2016 00:50:Marily Templeton RN) Term: 1 (05/11/2016 00:50:BRIONNA De Los Santos) Induced Abortions: 1 (05/11/2016 00:50:BRIONNA De Los Santos) Livin (05/11/2016 00:50:BRIONNA De Los Santos) Baby, Number in Womb: 1 (05/11/2016 00:50:BRIONNA De Los Santos) CARE Primary Self Storage Manager: [facility] (05/11/2016 00:50:Marily Templeton RN) Adequate Care: Yes (05/11/2016 00:50:Marily Templeton RN) Height (in): 65 (09/08/2016 06:51:QS system process) ALLERGIES Medication Allergy: No (05/11/2016 00:50:Marily Templeton RN) Medication Allergies: No Known Allergies (09/08/2016) (09/08/2016 06:50:QS system process) Latex Allergy: No Latex Allergies (05/11/2016 00:50:Marily Templeton RN) Food Allergies: n/a (05/11/2016 00:50:Marily Templeton RN) Environmental Allergies: n/a (05/11/2016 00:50:Marily Templeton RN) COMMUNICATION Primary Language: Tongan (05/11/2016 00:50:Marily Templeton RN) Medical Tx Preferred Language: Tongan (05/11/2016 00:50:Marily Templeton RN) Tongan Communication Ability: Speaks Tongan; Reads Tongan (05/11/2016 00:50:Marily Templeton RN) Communication Barrier(s): None (05/11/2016 00:50:Marily Templeton RN) DEMOGRAPHICS Address: [address] [place] [address] (05/10/2016 23:22:QS system process) Zipcode: [address] (05/10/2016 23:22:QS system process) Home (05/10/2016 23:22:QS system process) SSN: [id number] (05/10/2016 23:22:QS system process) Next of Kin Name: RYNE DUVALL (05/10/2016 23:22:QS system process) Next of Kin (05/10/2016 23:22:QS system process) Next of Kin Relationship: OR (05/10/2016 23:22:QS system process) Date of : 1990 (05/10/2016 23:22:QS system process) Marital Status: Single (05/10/2016 23:22:QS system process) Sex: Female (05/10/2016 23:22:QS system process) Race: (05/10/2016 23:22:QS system process) Ethnicity: Non- or (05/10/2016 23:22:QS system process) Restoration: Other (05/10/2016 23:22:QS system process) FOB Involved: Yes (05/11/2016 00:50:BRIONNA Tenorio) Father of Baby Name: Ryne Duvall (05/11/2016 00:50:BRIONNA Tenorio) DRUG AND ALCOHOL USE Alcohol: No (05/11/2016 00:50:Marily Templeton RN) Cigarettes: Former Smoker. [id number] (05/11/2016 00:50:Marily Templeton RN) Marijuana: No (05/11/2016 00:50:Marily Templeton RN) Cocaine: No (05/11/2016 00:50:Marily Templeton RN) Other Illicit Drugs: No (05/11/2016 00:50:Marily Templeton RN) VACCINE HISTORY Influenza Vaccine: No (05/11/2016 00:50:Marily Templeton RN) Pneumococcal Vaccine: No (05/11/2016 00:50:Marily Templeton RN) Tetanus Vaccine: Uncertain (05/11/2016 00:50:Marily Templeton RN) Tdap Vaccine: Uncertain (05/11/2016 00:50:Marily Templeton RN) Hepatitis B Vaccine: Uncertain (05/11/2016 00:50:Marily Templeton RN) Veneer Drier: [facility] (05/11/2016 00:50:Marily Templeton RN) Feeding Preference: Breast (05/11/2016 00:50:Marily Templeton RN) Benefit of Breast Feed Discussed: Yes (05/11/2016 00:50:Marily Templeton RN) Circumcision: N/A (05/11/2016 00:50:Marily Templeton RN) Classes Attended: Yes (05/11/2016 00:50:Marily Templeton RN) Tubal Ligation: No (05/11/2016 00:50:Marily Templeton RN) Tubal Authorization Signed: N/A (05/11/2016 00:50:Marily Templeton RN) Consent: N/A (05/11/2016 00:50:Marily Templeton RN) Consent Signed: N/A (05/11/2016 00:50:Marily Templeton RN) Pain Management Plans: None (05/11/2016 00:50:Marily Templeton RN) Plans for Labor and Delivery: None (05/11/2016 00:50:Marily Templeton RN) Support Person: Chas Duvall (05/11/2016 00:50:Marily Templeton RN) Support Person Relationship: Significant Other (05/11/2016 00:50:Marily Templeton RN) Cultural/Spritual Practice: No (05/11/2016 00:50:Marily Templeton RN) Spir/Cult Dietary Needs: No (05/11/2016 00:50:Marily Templeton RN) LIVING SITUATION/DISCHARGE PLAN Living Arrangements: House (05/11/2016 00:50:Marily Templeton RN) Adequate Access to:: Electric; Heat; Refrigeration; Plumbing/Running water; Phone; Transportation (05/11/2016 00:50:Marily Templeton RN) WIC Program: No (05/11/2016 00:50:Marily Templeton RN) Discharge Reed Cleaner Person: Chas Duvall (05/11/2016 00:50:Marily Templeton RN) Currently Using Commun Resources: No (05/11/2016 00:50:Marily Templeton RN) Outside Agency/Electricity Trader: N/A (05/11/2016 00:50:Marily Templeton RN) Adoption Requested: No (05/11/2016 00:50:Marily Templeton RN) Pt Contact w/infant Post : N/A (05/11/2016 00:50:Marily Templeton RN) LABS Blood Type: A Positive (05/11/2016 00:50:Marily Templeton RN) Antibody Screen: negative (05/11/2016 00:50:Marily Templeton RN) Hemoglobin: 10.6 L (09/08/2016 07:17:QS system process) Hematocrit: 33.5 L (09/08/2016 07:17:QS system process) MCV: 89 (09/08/2016 07:17:QS system process) Group Beta Strep: negative (05/11/2016 00:50:Lianne Gale RN) Gonorrhea: Negative (05/11/2016 00:50:Marily Templeton RN) Chlamydia: Negative (05/11/2016 00:50:Marily Templeton RN) RPR/VDRL: Nonreactive (05/11/2016 00:50:Marily Templeton RN) Hepatitis B: Negative (05/11/2016 00:50:Marily Templeton RN) Rubella: Immune (05/11/2016 00:50:Marily Templeton RN) Varicella: Non Susceptible (05/11/2016 00:50:Marily Templeton RN) OB/PREVIOUS HISTORY Previous Procedures: Ultrasound; NST (05/11/2016 00:50:Marily Templeton RN) Current Procedures: Ultrasound; NST (05/11/2016 00:50:Marily Templeton RN) History of Previous : No (05/11/2016 00:50:Marily Templeton RN) History of Gestational Diabetes: No (05/11/2016 00:50:Marily Templeton RN) History of PIH: No (05/11/2016 00:50:Marily Templeton RN) History of Incompetent Cervix: No (05/11/2016 00:50:Marily Templeton RN) History of Placenta Previa/Abrup: No (05/11/2016 00:50:Marily Templeton RN) History of Macrosomia: No (05/11/2016 00:50:Marily Templeton RN) History of IUGR: No (05/11/2016 00:50:Marily Templeton RN) History of Hemorrhage: No (05/11/2016 00:50:Marily Templeton RN) History of Loss/Stillborn: No (05/11/2016 00:50:Marily Templeton RN) History of : No (05/11/2016 00:50:Marily Templeton RN) History of D (Rh) Sensitization: No (05/11/2016 00:50:Marily Templeton RN) History Recurrent Loss/Stillborn: No (05/11/2016 00:50:Marily Templeton RN) History Depression/PP Depression: No (05/11/2016 00:50:Marily Templeton RN) History of Uterine Anomaly/MASOUD: No (05/11/2016 00:50:Marily Templeton RN) History of Infertility: No (05/11/2016 00:50:Marily Templeton RN) History of ART Treatment: No (05/11/2016 00:50:Marily Templeton RN) History of MASOUD: No (05/11/2016 00:50:Marily Templeton RN) Comments Obstetrical History: G1:EAB 2008 G2: 2010 G3: current preganancy (05/11/2016 00:50:Marily Templeton RN) MEDICAL HISTORY Med Hx Diabetes: No (05/11/2016 00:50:Marily Templeton RN) Med Hx Hypertension: No (05/11/2016 00:50:Marily Jareth, RN) Med Hx Heart Disease: No (05/11/2016 00:50:Marily Templeton RN) Med Hx Autoimmune Disorder: No (05/11/2016 00:50:Marily Templeton RN) Med Hx Kidney Disease/UTI: No (05/11/2016 00:50:Marily Templeton RN) Med Hx Neurologic/Epilepsy: No (05/11/2016 00:50:Marily Templeton RN) Med Hx Psychiatric Disorders: No (05/11/2016 00:50:Marily Templeton RN) Med Hx Hepatitis/Liver Disease: No (05/11/2016 00:50:Marily Templeton RN) Med Hx Varicosities/Phlebitis: No (05/11/2016 00:50:Marily Templeton RN) Med Hx Thyroid Dysfunction: No (05/11/2016 00:50:Mariyl Templeton RN) Med Hx Trauma/Violence: No (05/11/2016 00:50:Marily Templeton RN) Med Hx Pulmonary (Asthma,TB): No (05/11/2016 00:50:Marily Templeton RN) Med Hx Breast: No (05/11/2016 00:50:aMrily Templeton RN) Med Hx SECURITY INCIDENT RESPONSE ENGINEER Surgery: No (05/11/2016 00:50:Marily Templeton RN) Med Hx Hospitalization/Surgery: Yes (05/11/2016 00:50:Marily Templeton RN) Med Hx Anesthetic Complications: No (05/11/2016 00:50:Marily Templeton RN) Med Hx Abnormal Pap Smear: No (05/11/2016 00:50:Marily Templeton RN) Other Medical Diseases: No (05/11/2016 00:50:Marily Templeton RN) Med Hx Significant Family Hx: No (05/11/2016 00:50:Marily Templeton RN) INFECTIOUS HISTORY Inf Hx Gonorrhea: No (05/11/2016 00:50:Marily Templeton RN) Inf Hx Chlamydia: No (05/11/2016 00:50:Marily Templeton RN) Inf Hx Syphilis: No (05/11/2016 00:50:Marily Templeton RN) Inf Hx HIV/AIDS: No (05/11/2016 00:50:Marily Templeton RN) Inf Hx Human Papilloma Virus: No (05/11/2016 00:50:Marily Templeton RN) Inf Hx Pt/Partner Genital Herpes: No (05/11/2016 00:50:Marily Templeton RN) Inf Hx Tuberculosis/Exposure: No (05/11/2016 00:50:Marily Templeton RN) Inf Hx Hepatitis B,C: No (05/11/2016 00:50:Marily Templeton RN) Inf Hx Rash or Viral Illness: No (05/11/2016 00:50:Marily Templeton RN) GENETIC HISTORY Gen Hx Age >=35 at [place]: No (05/11/2016 00:50:Marily Templeton RN) Gen Hx Thalassemia: No (05/11/2016 00:50:Marily Templeton RN) Gen Hx Congenital Heart Defect: No (05/11/2016 00:50:Marily Templeton RN) Gen Hx Neural Tube Defect: No (05/11/2016 00:50:Marily Templeton RN) Gen Hx Down's Syndrome: No (05/11/2016 00:50:Marily Templeton RN) Gen Hx Robert-Sachs: No (05/11/2016 00:50:Marily Templeton RN) Gen Hx Mitul: No (05/11/2016 00:50:Marily Templeton RN) Gen Hx Familial Dysautonomia: No (05/11/2016 00:50:Marily Templeton RN) Gen Hx Sickle Cell Disease/Trait: No (05/11/2016 00:50:Marily Templeton RN) Gen Hx Hemophilia/Blood Disorder: No (05/11/2016 00:50:Marily Templeton RN) Gen Hx Muscular Dystrophy: No (05/11/2016 00:50:Marily Templeton RN) Gen Hx Cystic Fibrosis: No (05/11/2016 00:50:Marily Templeton RN) Gen Hx Huntingtons Chorea: No (05/11/2016 00:50:Marily Templeton RN) Gen Hx Mental Retardation/Autism: No (05/11/2016 00:50:Marily Templeton RN) Gen Hx Tested for Fragile X: No (05/11/2016 00:50:Marily Templeton RN) Gen Hx Other Inher/Chromosomal: No (05/11/2016 00:50:Marily Templeton RN) Gen Hx Maternal Metabolic DO: No (05/11/2016 00:50:Marily Templeton RN) Gen Hx Pt Father or FOB Defect: No (05/11/2016 00:50:Marily Templeton RN) Gen Hx Other Genetic History: No (05/11/2016 00:50:Marily Templeton RN) Gen Hx Drugs/Meds since LMP: No (05/11/2016 00:50:Marily Templeton RN) Gen Hx Medications: prenatals (05/11/2016 00:50:Marily Templeton RN)
--- NOTE | 2016-09-10 06:16 | L&D Care Plan ---
LD CARE PLANS Datetime Report Generated by CPN: 09/10/2016 06:15 Datetime: 09/08/2016 07:27 Pain State: Risk For (BRIONNA De Los Santos) Related To: Labor and Delivery Process; Treatment and Procedures (BRIONNA De Los Santos) Goal(s): Patients Pain will be Assessed and Managed; Patient will Verbalize Adequate Relief of Pain or the Ability to Knickerbocker with Current Pain (BRIONNA De Los Santos) Interventions: Assess Pain Severity on Scale of 0 (None) to 5 (Severe); Assess Type, Location and Intensity of Pain Each Time Client Reports Discomfort and Notify Provider if Unusal Pain Develops; Encourage Proper Breathing and Relaxation Techniques; Offer Alternatives Such as Repositioning, Calm Environment, Massages, Diversional Activities, Ice Pack, Splinting, and Ambulation; Administer Analgesics as Ordered; Assist with Epidural Placement as Appropriate; Evaluate Therapeutic Effectiveness of Medication and Treatments (BRIONNA De Los Santos) Outcome: Patient will Report Absence or Relief of Pain Consistent with Established Pain Goal (BRIONNA De Los Santos) Outcome: Patient will have a Decrease in Signs and Symptoms of Discomfort (BRIONNA De Los Santos) Outcome: Pain will be Controlled During Procedures (BRIONNA De Los Santos) Anxiety State: Risk For (BRIONNA De Los Santos) Related To: Labor and Delivery Process; Surgical Procedure; Perceived or Actual Threat to (BRIONNA De Los Santos) Goal(s): Patient will have Decreased Anxiety and be able to Function at Acceptable Levels (BRIONNA De Los Santos) Interventions: Assess Verbal and Nonverbal Behavioral Indicators of Anxiety; Assist Patient to Identify and Verbalize Symptoms of Anxiety; Identify and Demonstrate Techniques to Control Anxiety; Assist Patient with Coping Mechanisms to Manage Anxiety; Provide Theraputic Touch for the Patient; Explain to Patient, Using a Calm Reassuring Approach and Nonmedical Terms, All Activities, Procedures, and Concerns; Instruct Patient and Family about Post Discharge Care, Limitations, Symptoms to Report and Resources Available (BRIONNA De Los Santos) Outcome: Patient will Identify, Verbalize and Demonstrate Techniques to Control Anxiety (BRIONNA De Los Santos) Outcome: Patient's Posture, Facial Expressions, Gestures and Activity Level will Reflect Decreased Anxiety (BRIONNA De Los Santos) Outcome: Patient will Verbalize a Sense of Control and/or Acceptance of the Situation (BRIONNA De Los Santos) Outcome: Patient will Identify and Utilize Support Person (BRIONNA De Los Santos) Knowledge Deficit State: Not Applicable (BRIONNA De Los Santos) Infection State: Risk For (BRIONNA De Los Santos) Related To: Prolonged Labor or Induction (BRIONNA De Los Santos) Goal(s): The Patient will be Free of Infection, Vital Signs Stable and Lab Work within Normal Parameters (BRIONNA De Los Santos) Interventions: Instruct and Reinforce Proper Handwashing, Hygiene, and Care Techniques to Patient and Family; Monitor Vital Signs; Monitor Patient for the Following Signs of Infection: Fever, Abdominal Tenderness, Unusual Discharge; Monitor Aminiotic Fluid, Urine and Lochia for Color and Odor; Observe Wounds, Incisions and Invasive Line Sites for Redness, Drainage and Edema; Assess IV Sites per Hospital Policy; Monitor Lab and Test Results and Notify Provider of Abnormal Findings; Assess Nutritional Status and Promote Good Nutrition (BRIONNA De Los Santos) Outcome: Patient will Remain Free of Infection (BRIONNA De Los Santos) Outcome: Infection will be Recognized Early to Allow for Prompt Treatment (BRIONNA De Los Santos) Outcome: Patient will have Vital Signs Within Expected Range (BRIONNA De Los Santos) Fluid Volume State: Risk For (BRIONNA De Los Santos) Related To: Prolonged Labor or Induction (BRIONNA De Los Santos) Goal(s): Patient will Achieve and Maintain a Balanced Fluid Volume Status; Hemodynamically Stable (BRIONNA De Los Santos) Interventions: Monitor Vital Signs; Auscultate Breath Sounds; Monitor Patient for Skin Turgor, Mucous Membranes, Dry Skin, Weakness, Headaches and Confusion; Provide Oral Fluids as Ordered; Initiate and Maintain Intravenous Fluids as Ordered; Monitor Intake and Output as Indicated Per Patient Status; Accurately Measure Blood Loss; Monitor Lab and Test Results as Obtained and Notify Provider of Abnormal Findings; Monitor Patient's Weight (BRIONNA De Los Santos) Outcome: Patient will have Clear Lung Sounds (BRIONNA De Los Santos) Outcome: Patient will have Vital Signs within Expected Range (BRIONNA De Los Santos) Outcome: Urine Output will be within Expected Range (BRIONNA De Los Santos) Outcome: Patient will have Minimal Generalized or Upper Extremity Edema (BRIONNA De Los Santos) Injury State: Risk For (BRIONNA De Los Santos) Related To: Labor and Delivery Process (BRIONNA De Los Santos) Goal(s): Patient will Remain Free from Injury (BRIONNA De Los Santos) Interventions: Monitoring as per Hospital Protocol; Assess Neurological Status; Perform Risk Assessment of Patients with Induction and ; Perform Fall Risk Assessment and Prevention per Hospital Protocol; Perform DVT Risk Assessment and Prophylaxis per Hospital Protocol; Ensure that Oxygen, Suction, and Resuscitation Medications and Equipment are Readily Available; Confirm Patient ID Prior to Procedure(s) and Medication Administration per Hospital Policy (BRIONNA De Los Santos) Outcome: Successful Fall Risk Prevention (BRIONNA De Los Santos) Outcome: Patient will Deliver Infant without Adverse Sequela (BRIONNA De Los Santos) Outcome: Patient's Neurological Status will Remain Stable (BRIONNA De Los Santos) Impaired Skin Integrity State: Risk For (BRIONNA De Los Santos) Related To: Vaginal Delivery (BRIONNA De Los Santos) Goal(s): Patient will Maintain Optimal Skin Integrity, Free of Breakdown, Injury or Infection (BRIONNA De Los Santos) Interventions: Complete Screening for Pressure Ulcer Risk and Initiate Protocol per Hospital Policy; Monitor Site of Skin Impairment for Color Changes, Redness, Swelling, Warmth, Pain or Other Signs of Infection; Encourage and Assist with Position Changes; Monitor Patient's Mobility Status; Provide Adequate Nutrition and Fluids; Teach Patient Appropriate Hygienic Care; Teach Patient/Family Skin Care Management (BRIONNA De Los Santos) Outcome: Patient will not have Evidence of Injury Such as Skin Breakdown, Scrapes, Cuts, or Bruising (Marla Thompson [facility]) Outcome: Patient will Report Any Altered Sensation or Pain at Site of Skin Impairment (Marla Thompson [facility]) Outcome: Patients Incisions and Wounds will be without Signs or Symptoms of Infection (Marla Thompson [facility]) Outcome: Patient will Demonstrate Understanding of Plan to Heal Skin and Prevent Reinjury and Verbalize Risk Factors (Marla Thompson [facility]) Parenting Impaired State: Not Applicable [facility] Nutrition State: Not Applicable [facility]) Grieving State: Not Applicable (Marla Thompson, RNC) Additional Care Plan State: Not Applicable BRIONNA Harrison)
[2016-09-10 07:21] LABS: HEMATOCRIT 35.1 % (36.0-47.0); HEMOGLOBIN 11.2 g/dL (12.0-15.5); HGB HCT DIFFERENCE -1.5; MEAN CORPUSCULAR HEMOGLOBIN 28.1 pg (27.0-33.4); MEAN CORPUSCULAR VOLUME 88 fl (80-97); RED CELL DISTRIBUTION WIDTH 13.4 % (11.5-14.0); WHITE BLOOD COUNT 12.2 10^3/uL (4.0-10.5)
[2016-09-10 08:42] VITALS: BP 107/69
[2016-09-10] MEDS: FERROUS SULFATE 325 MG TABLET PO SCH (09:48)
[2016-09-10] MEDS: SENNOSIDES/DOCUSATE 8.6-50 MG 1 EACH TABLET PO SCH (09:48)
[2016-09-10] MEDS: DOCUSATE SODIUM 100 MG CAPSULE PO SCH (09:49)
[2016-09-10] MEDS: PRENATAL VITAMIN W-O CA NO5/FE FUMARATE/FA CAPSULE PO SCH (09:49)
--- NOTE | 2016-09-10 10:13 | PDOC PROGRESS REPORT ---
Subjective-OB Subjective: Post Delivery Day: 26 year old. Denies any needs at this time. Ready to go home. Physical Exam (OB) Vital Signs: Temp Pulse Resp BP Pulse Ox 98.0 F 65 18 107/69 97 09/10/16 08:40 09/10/16 08:40 09/10/16 08:40 09/10/16 08:40 09/10/16 08:40 - PIH/Pre-Eclampsia Clonus: Negative Headache: Absent Epigastric Pain: No Visual Changes: No - Lochia Lochia Amount: Scant < 10 ml Lochia Color: Rubra/Red - Abdomen Description: Tender, Soft Hernia Present: No Bowel Sounds: Normoactive Flatus Presence: Present Stool: No Fundal Description: Firm, Midline Fundal Height: u/u - u/2 Objective-Diagnostic Laboratory: 09/10/16 07:00 09/10/16 07:00 WBC 12.2 H RBC 4.00 Hgb 11.2 L Hct 35.1 L MCV 88 MCH 28.1 MCHC 32.0 RDW 13.4 Plt Count 247 Assessment and Plan(PN) - Time Spent with Patient Medications reviewed and adjusted accordingly: Yes - Disposition Anticipated Discharge: Home
--- NOTE | 2016-09-10 10:21 | PDOC DISCHARGE SUMMARY ---
Final Diagnosis Discharge Date: 09/10/16 - Final Diagnosis (1) Delivery normal Is this a current diagnosis for this admission?: Yes (2) Is this a current diagnosis for this admission?: Yes Discharge Data Gestational Age: 41.0 wks Reason(s) for Admission: Induction of Labor Intrapartum Procedure(s): Spontaneous Vaginal Delivery - [place] Data Baby 1 Female at 1 minute: 9 at 5 minutes: 9 Weight: 3.26 kg Home with Mother: Yes Complications: No - Diagnosis Test Laboratory: Temp Pulse Resp BP Pulse Ox 98.0 F 65 18 107/69 97 09/10/16 08:40 09/10/16 08:40 09/10/16 08:40 09/10/16 08:40 09/10/16 08:40 09/08/16 09/08/16 09/10/16 06:48 07:17 07:00 RBC 3.77 4.00 Hgb 10.6 L 11.2 L Hct 33.5 L 35.1 L Urine Opiates Screen NEGATIVE - Discharge information/Instructions Discharge Activity: Activity As Tolerated, Balance Activity w/Rest, Pelvic Rest , Slowly Increase Activity, No tub bath Discharge Diet: Regular Disposition: HOME, SELF-CARE Follow up with: [facility] in: 4, Weeks
== END 2016-09-10 12:06 | disposition home or self-care (01) | DRG 775 ==
LOC: LR 06:36 → 2S 09-09 00:30
PROVIDERS: ADMIT Specialist; ATTEND Specialist
PROC: 10H07YZ Insertion of Other Device into Products of Conception, Via Natural or Artificial Opening (ICD-10-PCS; principal; 2016-09-08)
PROC: 10E0XZZ Delivery of Products of Conception, External Approach (ICD-10-PCS; 2016-09-08)
PROC: 4A1J7BZ Monitoring of Products of Conception, Nervous Pressure, Via Natural or Artificial Opening (ICD-10-PCS; 2016-09-08)
DX: O48.0 Post-term pregnancy (principal); Z37.0 Single live birth; Z3A.41 41 weeks gestation of pregnancy; Z87.891 Personal history of nicotine dependence
CPT/HCPCS: 36415; 80307; 81005; 85025; 85027; 86592; 86850; 86900; 86901; J2590; J3490

== ENCOUNTER 2016-10-01 13:51 | Emergency (ER) | payer MEDICAID ==
[2016-10-01] MEDS ORDERED: ONDANSETRON 4 MG TAB.RAPDIS PO ONE (14:10)
[2016-10-01] MEDS ORDERED: NORMAL SALINE 1000 ML 1,000 ML IV ONE ×2 (14:14→16:16)
--- NOTE | 2016-10-01 14:14 | ER Document Report ---
ED Medical Screen (RME) - General Stated Complaint: VOMITING Mode of Arrival: Ambulatory Information source: Patient Notes: 26 y/o F presents to ED c/o left lower back/flank pain and n/v over the last 3 days. Reports is approximately 3 weeks post-. Denies fever. I have greeted and performed a rapid initial assessment of this patient. A comprehensive ED assessment and evaluation of the patient, analysis of test results and completion of the medical decision making process will be conducted by additional ED providers. TRAVEL OUTSIDE OF THE [place] IN LAST 30 DAYS: No - Related Data Allergies/Adverse Reactions: No Known Allergies Allergy (Verified 10/01/16 14:11) Past Medical History - Social History Chew tobacco use (# tins/day): No Frequency of alcohol use: None Drug Abuse: None Renal/ Medical History: Denies: Hx Peritoneal Dialysis - Immunizations Immunizations up to date: Yes Hx Diphtheria, Pertussis, Tetanus Vaccination: Yes Physical Exam - Vital signs Vitals: Temp Pulse Resp BP Pulse Ox 98.3 F 116 H 16 122/76 96 10/01/16 13:56 10/01/16 13:56 10/01/16 13:56 10/01/16 13:56 10/01/16 13:56 - General General appearance: Alert In distress: None - Respiratory Respiratory status: No respiratory distress Course - Vital Signs Vital signs: Temp Pulse Resp BP Pulse Ox 98.3 F 116 H 16 122/76 96 10/01/16 13:56 10/01/16 13:56 10/01/16 13:56 10/01/16 13:56 10/01/16 13:56
[2016-10-01 15:05] LABS: ABSOLUTE LYMPHOCYTES (AUTO) 1.3 10^3/uL (0.5-4.7); ABSOLUTE MONOCYTES (AUTO) 1.2 10^3/uL (0.1-1.4); ABSOLUTE NEUT (AUTO) 16.3 10^3/uL (1.7-8.2); BASOPHILS % (AUTO) 0.2 % (0-2); EOSINOPHILS % (AUTO) 0.2 % (0-6); HEMATOCRIT 43.5 % (36.0-47.0); HEMOGLOBIN 14.1 g/dL (12.0-15.5); HGB HCT DIFFERENCE -1.2; MEAN CORPUSCULAR HEMOGLOBIN 28.2 pg (27.0-33.4); MEAN CORPUSCULAR HGB CONC 32.4 g/dL (32.0-36.0); MEAN CORPUSCULAR VOLUME 87 fl (80-97); MONOCYTES % (AUTO) 6.3 % (3-13); RED CELL DISTRIBUTION WIDTH 13.9 % (11.5-14.0); SEGMENTED NEUTROPHILS % (AUTO) 86.3 % (42-78); WHITE BLOOD COUNT 18.9 10^3/uL (4.0-10.5)
[2016-10-01 15:11] LABS: APPEARANCE,URINE CLOUDY; BILIRUBIN,URINE NEGATIVE (NEGATIVE); GLUCOSE, URINE NEGATIVE (NEGATIVE); KETONES,URINE TRACE mg/dL (NEGATIVE); LEUKOCYTE ESTERASE,URINE MODERATE (NEGATIVE); NITRITE,URINE NEGATIVE (NEGATIVE); PROTEIN,URINE 100 mg/dL (NEGATIVE); URINE SPECIFIC GRAVITY 1.032
[2016-10-01 15:29] LABS: ALANINE AMINOTRANSFERASE 38 U/L (9-52); ALBUMIN 3.9 g/dL (3.5-5.0); ALKALINE PHOSPHATASE 133 U/L (38-126); ANION GAP 14 (5-19); ASPARTATE AMINO TRANSFERASE 20 U/L (14-36); BILIRUBIN,TOTAL 0.8 mg/dL (0.2-1.3); BLOOD UREA NITROGEN 16 mg/dL (7-20); CALCIUM 10.1 mg/dL (8.4-10.2); CARBON DIOXIDE 28 mmol/L (22-30); CHLORIDE 98 mmol/L (98-107); CREATININE RESULT 1.43 mg/dL (0.52-1.25); GLUCOSE 121 mg/dL (75-110); LIPASE 47.3 U/L (23-300); POTASSIUM 4.1 mmol/L (3.6-5.0); SODIUM 139.7 mmol/L (137-145)
[2016-10-01] MEDS ORDERED: CEFTRIAXONE INJ 1000 MG VIAL IV ONE (16:09)
[2016-10-01] MEDS ORDERED: ONDANSETRON HCL INJ/PF 4 MG/2 ML SDV IV ONE ×2 (16:16→22:54)
--- NOTE | 2016-10-01 16:24 | ER Document Report ---
ED GI/ - General Chief Complaint: Nausea/Vomiting Stated Complaint: VOMITING Mode of Arrival: Ambulatory Notes: The patient is a 26-year-old female 3 weeks presents with 4 days of left flank pain, nausea and vomiting. She says she is vomiting up everything that she eats. Denies abdominal pain, shortness of breath, cough, rash, headache, dysuria, hematuria or diarrhea. TRAVEL OUTSIDE OF THE [place] IN LAST 30 DAYS: No - Related Data Allergies/Adverse Reactions: No Known Allergies Allergy (Verified 10/01/16 14:11) Past Medical History - General Information source: Patient - Social History Smoking Status: Never Smoker Chew tobacco use (# tins/day): No Frequency of alcohol use: None Drug Abuse: None Family History: Reviewed & Not Pertinent Patient has suicidal ideation: No Patient has homicidal ideation: No Renal/ Medical History: Denies: Hx Peritoneal Dialysis - Immunizations Immunizations up to date: Yes Hx Diphtheria, Pertussis, Tetanus Vaccination: Yes Review of Systems - Review of Systems Notes: REVIEW OF SYSTEMS: CONSTITUTIONAL: +fevers, -chills EENT: -eye pain, -difficulty swallowing, -nasal congestion CARDIOVASCULAR:-chest pain, -syncope. RESPIRATORY: -cough, -SOB GASTROINTESTINAL: -abdominal pain, +nausea, +vomiting, -diarrhea GENITOURINARY: -dysuria, -hematuria MUSCULOSKELETAL: +back pain, -neck pain SKIN: -rash or skin lesions. HEMATOLOGIC: -easy bruising or bleeding. LYMPHATIC: -swollen, enlarged glands. NEUROLOGICAL: -altered mental status or loss of consciousness, -headache, - neurologic symptoms PSYCHIATRIC: -anxiety, -depression. ALL OTHER SYSTEMS REVIEWED AND NEGATIVE. Physical Exam - Vital signs Vitals: Temp Pulse Resp BP Pulse Ox 98.3 F 116 H 16 122/76 96 10/01/16 13:56 10/01/16 13:56 10/01/16 13:56 10/01/16 13:56 10/01/16 13:56 - Notes Notes: PHYSICAL EXAMINATION: GENERAL: Uncomfortable. HEAD: Atraumatic, normocephalic. EYES: Pupils equal round and reactive to light, extraocular movements intact, sclera anicteric, conjunctiva are normal. ENT: nares patent, oropharynx clear without exudates. Moist mucous membranes. NECK: Normal range of motion, supple without lymphadenopathy LUNGS: Breath sounds clear to auscultation bilaterally and equal. No wheezes rales or rhonchi. HEART: Tachycardic. ABDOMEN: Soft, nontender, normoactive bowel sounds. No guarding, no rebound. No masses appreciated. EXTREMITIES: Left CVA tenderness. Normal range of motion, no pitting or edema. No cyanosis. NEUROLOGICAL: Cranial nerves grossly intact. Normal speech, normal gait. Normal sensory, motor, and reflex exams. PSYCH: Normal mood, normal affect. SKIN: Warm, Dry, normal turgor, no rashes or lesions noted. Course - Re-evaluation Re-evalutation: 10/01/16 16:24 With left flank pain, fevers, nausea, vomiting and 127 WBCs and urinalysis with +leuk esterase, patient has evidence of pyelonephritis. Will treat with Rocephin, fluids and antiemetics and reassess. She has slight MELECIO most likely from not being able to drink the past 4 days. Will have her have this rechecked by her PMD. 10/01/16 19:30 Patient feels much better after antibiotics and fluids. She is tolerating fluids. Will send home with Keflex and Reglan and given strict return precautions and she understands. - Vital Signs Vital signs: Temp Pulse Resp BP Pulse Ox 98.3 F 116 H 16 122/76 96 10/01/16 13:56 10/01/16 13:56 10/01/16 13:56 10/01/16 13:56 10/01/16 13:56 - Laboratory Result Diagrams: 10/01/16 14:40 10/01/16 14:40 Laboratory results interpreted by me: 10/01/16 10/01/16 10/01/16 14:40 14:40 14:40 WBC 18.9 H Seg Neutrophils % 86.3 H Lymphocytes % 7.0 L Absolute Neutrophils 16.3 H Creatinine 1.43 H Est GFR ( Amer) 54 L Est GFR (Non-Af Amer) 45 L Glucose 121 H Alkaline Phosphatase 133 H Urine Protein 100 H Urine Ketones TRACE H Urine Blood MODERATE H Urine Urobilinogen 2.0 H Ur Leukocyte Esterase MODERATE H Discharge - Discharge Clinical Impression: Pyelonephritis Condition: Good Disposition: HOME, SELF-CARE Additional Instructions: PYELONEPHRITIS: Your evaluation shows evidence of pyelonephritis. This is an infection in the kidney. Typical symptoms are fever, pain in the flank, pain on urination, and frequent urination. Many cases of pyelonephritis can be treated at home. Hospital care may be necessary for patients who are very ill, or elderly or . Pyelonephritis is treated with antibiotics. Be sure to take all the medication as prescribed. Drink plenty of liquids (about three quarts per day) . You may take acetaminophen for fever. You should feel significantly improved within two days. You should have a recheck of your urine in about one week to insure that the infection is gone. Return for a re-examination if your symptoms worsen in any way -- such as high fever, shaking chills, severe weakness or dizziness, severe pain, or inability to pass your urine. TORADOL INJECTION: You have been given an injection of ketorolac tromethamine (Toradol). This is an excellent, safe drug for pain control. It also has potent antiinflammatory action. You should have significant pain relief within about one hour. Toradol is not addicting and is non-sedating. It does not interfere with driving or work. Call or return if you develop itching, hives, shortness of breath, or rash. ANTINAUSEA MEDICATION: You have been given a medication to suppress nausea and vomiting. This type of medication can be given as a shot, pill, or suppository. It will usually last for many hours. Pills and shots usually last six to eight hours, suppositories last about 12 hours. For the typical illness, only one or two doses of the medication may be necessary. Mild lightheadedness may occur. This type of medicine can cause drowsiness. Do not drive or operate dangerous machinery while under its influence. Do not mix with alcohol. See your doctor at once if you have muscle spasms or tightness, or uncontrollable motions (particularly of the neck, mouth, or jaw). Persistent vomiting or severe lightheadedness should also be evaluated by the physician. ANTIBIOTIC THERAPY: You have been given an antibiotic prescription. It's important that you take all the medication, unless instructed otherwise by your physician. Failure to complete the entire course can result in relapse of your condition. Common side effects of antibiotics include nausea, intestinal cramping, or diarrhea. Women may develop vaginal yeast infections, and babies can get yeast (thrush) in the mouth following the use of antibiotics. Contact your physician if you develop significant side effects from this medication. Allergy to this antibiotic can result in hives, wheezing, faintness, or itching. If symptoms of allergy occur, stop the medication and call the doctor. ROCEPHIN: You have been given an injection of an antibiotic called Rocephin ( ceftriaxone). Sometimes the injection must be combined with antibiotic pills. For some infections, such as an uncomplicated ear infection, Rocephin provides all the antibiotic that's needed. The antibiotic will be in your body for about two days. For serious infections, we usually repeat doses of Rocephin daily. Side effects are very unusual following a shot. Women may develop vaginal yeast infections, and babies can get yeast (thrush) in the mouth following the use of antibiotics. Contact your physician if you have symptoms with this medication. Allergy to this antibiotic can result in hives, wheezing, faintness, or itching. If symptoms of allergy occur, call the doctor at once. CEPHALEXIN: The antibiotic you've been prescribed is a member of the cephalosporin class. This type of antibiotic covers a wide variety of infections, including those of the skin, lungs, and urinary tract. It's useful for staph infections. This antibiotic is slightly similar to the penicillin family. In rare cases , a person who is allergic to penicillin will also be allergic to this medication. If you have had a severe allergic reaction to penicillin, and have not taken this antibiotic since that time, notify your doctor. Antibiotics which cover many germs ("broad spectrum" antibiotics) are more likely to cause diarrhea or "yeast" infections. Women prone to vaginal yeast problems may suffer an attack after taking this antibiotic. In infants, oral thrush (white spots "stuck" on the cheek) or yeast diaper rash may result. See your doctor if these problems occur. Call at once if you develop itching, hives , shortness of breath, or lightheadedness. USE OF ACETAMINOPHEN (Tylenol): Acetaminophen may be taken for pain relief or fever control. It's much safer than aspirin, offering a wider range of "safe" dosages. It is safe during . Some brand names are Tylenol, Panadol, Datril, Anacin 3, Tempra, and Liquiprin. Acetaminophen can be repeated every four hours. The following are maximum recommended dosages: >89 pounds or adults 650 mg to 900 mg Acetaminophen can be repeated every four hours. Maximum dose not to exceed 4000 mg a day. FOLLOW-UP CARE: If you have been referred to a physician for follow-up care, call the physician s office for an appointment as you were instructed or within the next two days. If you experience worsening or a significant change in your symptoms, notify the physician immediately or return to the Emergency Department at any time for re-evaluation. Prescriptions: Cephalexin Monohydrate [Keflex 500 mg Capsule] 500 mg PO TID 10 Days Metoclopramide HCl [Reglan] 10 mg PO Q12H PRN #12 tablet PRN Reason: Referrals: MONTSE BRUCE MD [Primary Care Provider] - Follow up as needed
[2016-10-01] MEDS ORDERED: MORPHINE SULFATE 10 MG/ML INJ IV ONE ×2 (18:43→22:50)
[2016-10-01] MEDS ORDERED: KETOROLAC TROMETHAMINE INJ/PF 30 MG/1 ML SDV IV ONE (18:43)
[2016-10-02 08:55] VITALS: BP 116/68
== END 2016-10-01 23:36 | disposition home or self-care (01) ==
LOC: ER 13:51
DX: O86.21 Infection of kidney following delivery (principal); O90.4 Postpartum acute kidney failure; O90.89 Other complications of the puerperium, not elsewhere classified; R11.2 Nausea with vomiting, unspecified
CPT/HCPCS: 96376; 99283; 96361; 96375; 96365; 36415; 83690; 85025; 80053; 81001; S0119; J1885; J2270; J0696; J2405; J7030

== ENCOUNTER 2016-10-04 01:30 | Emergency (ER) | payer MEDICAID ==
--- NOTE | 2016-10-04 01:44 | ER Document Report ---
ED Medical Screen (RME) - General Stated Complaint: POSSIBLE KIDNEY INFECTION Time seen by provider: 01:42 Mode of Arrival: Ambulatory Information source: Patient Notes: 26-year-old female presents to ED for symptoms of a kidney infection. Left flank pain She states she was here 2 days ago for kidney infection and the pain is still there. Patient states she's no fever states she does not feel like she is urinating enough but she is drinking a lot of water. She has vomited one time today. She states she is on Keflex and Phenergan. States she had a baby 3 weeks ago. I have greeted and performed a rapid initial assessment of this patient. A comprehensive ED assessment and evaluation of the patient, analysis of test results and completion of medical decision making process will be conducted by an additional ED providers. TRAVEL OUTSIDE OF THE [place] IN LAST 30 DAYS: No - Related Data Allergies/Adverse Reactions: No Known Allergies Allergy (Verified 10/04/16 01:43) Past Medical History Renal/ Medical History: Denies: Hx Peritoneal Dialysis - Immunizations Immunizations up to date: Yes Hx Diphtheria, Pertussis, Tetanus Vaccination: Yes Physical Exam - Vital signs Vitals: Temp Pulse Resp BP Pulse Ox 98.2 F 106 H 16 121/70 96 10/04/16 01:40 10/04/16 01:40 10/04/16 01:40 10/04/16 01:40 10/04/16 01:40 Course - Vital Signs Vital signs: Temp Pulse Resp BP Pulse Ox 98.2 F 106 H 16 121/70 96 10/04/16 01:40 10/04/16 01:40 10/04/16 01:40 10/04/16 01:40 10/04/16 01:40
[2016-10-04 02:40] LABS: APPEARANCE,URINE SLIGHTLY-CLOUDY; BILIRUBIN,URINE NEGATIVE (NEGATIVE); GLUCOSE, URINE NEGATIVE (NEGATIVE); KETONES,URINE NEGATIVE (NEGATIVE); LEUKOCYTE ESTERASE,URINE MODERATE (NEGATIVE); NITRITE,URINE NEGATIVE (NEGATIVE); PROTEIN,URINE 100 mg/dL (NEGATIVE); URINE SPECIFIC GRAVITY 1.033
[2016-10-04] MEDS ORDERED: NORMAL SALINE 1000 ML 1,000 ML IV ONE ×2 (08:33→10:29)
[2016-10-04] MEDS ORDERED: KETOROLAC TROMETHAMINE INJ/PF 30 MG/1 ML SDV IV ONE (08:33)
--- NOTE | 2016-10-04 08:39 | ER Document Report ---
ED GI/ - General Mode of Arrival: Ambulatory Information source: Patient TRAVEL OUTSIDE OF THE [place] IN LAST 30 DAYS: No - HPI Patient complains to provider of: Flank pain - Left Onset: Other - 09/28/2016 Timing/Duration: Sudden, Persistent Quality of pain: Throbbing Severity at maximum: Severe Location: Left flank <EMERSON ST - Last Filed: 10/04/16 14:09> <LINDA QUEZADA - Last Filed: 10/04/16 15:42> - General Chief Complaint: Possible Kidney Stone Stated Complaint: POSSIBLE KIDNEY INFECTION Notes: Patient is a 26-year-old female presenting to the emergency department concerned of left flank pain onset last 09/28/2016. Patient was seen by her primary care physician who noted blood in her urine, but assumed it was probably from delivery of her infant 09/08/2016. On 10/01/2016, patient came here to the emergency department and was diagnosed with a urinary tract infection with a white count of 19,000. Patient was put on Keflex and sent home with some nausea medication. Patient states she has been feeling better but now her pain has returned throbbing uncontrollably. Patient states that she has been drinking plenty of water, but her breasts have not been producing as much milk and she has been urinating much. ([address]) - Related Data Allergies/Adverse Reactions: No Known Allergies Allergy (Verified 10/04/16 01:43) Past Medical History - General Information source: Patient - Social History Smoking Status: Never Smoker Chew tobacco use (# tins/day): No Frequency of alcohol use: None Drug Abuse: None Lives with: Spouse/Significant other Family History: Reviewed & Not Pertinent Renal/ Medical History: Denies: Hx Peritoneal Dialysis Surgical Hx: Negative - Immunizations Immunizations up to date: Yes Hx Diphtheria, Pertussis, Tetanus Vaccination: Yes <EM[address] - Last Filed: 10/04/16 14:09> Review of Systems - Review of Systems Constitutional: No symptoms reported EENT: No symptoms reported Cardiovascular: No symptoms reported Respiratory: No symptoms reported Gastrointestinal: See HPI, Nausea Genitourinary: No symptoms reported Female Genitourinary: No symptoms reported Musculoskeletal: See HPI, Back pain - Left flank pain. Skin: No symptoms reported Hematologic/Lymphatic: No symptoms reported Neurological/Psychological: No symptoms reported -: Yes All other systems reviewed and negative <EMERSON ST - Last Filed: 10/04/16 14:09> Physical Exam - General General appearance: Alert - HEENT Head: Normocephalic, Atraumatic Eyes: Normal Pupils: PERRL - Respiratory Respiratory status: No respiratory distress Chest status: Nontender Breath sounds: Normal Chest palpation: Normal - Cardiovascular Rhythm: Regular Heart sounds: Normal auscultation Murmur: No - Abdominal Bowel sounds: Normal Tenderness: Tender - LLQ tender to palpation Organomegaly: No organomegaly - Back Back: CVA tenderness - Left CVA tender to percussion as well as left lumbar back muscles tender to palpation. - Extremities General upper extremity: Normal inspection General lower extremity: Normal inspection - Neurological Neuro grossly intact: Yes Cognition: Normal Nic Coma Scale Eye Opening: Spontaneous Nic Coma Scale Verbal: Oriented Brandon Coma Scale Motor: Obeys Commands Brandon Coma Scale Total: 15 Speech: Normal - Psychological Associated symptoms: Normal affect, Normal mood - Skin Skin Temperature: Warm Skin Moisture: Dry Skin Color: Normal <DONYA STICA - Last Filed: 10/04/16 14:09> Course - Laboratory Result Diagrams: 10/04/16 08:41 10/04/16 08:41 <DONYA STICA - Last Filed: 10/04/16 14:09> - Laboratory Result Diagrams: 10/04/16 08:41 10/04/16 08:41 <LINDA QUEZADA - Last Filed: 10/04/16 15:42> - Re-evaluation Re-evalutation: 10/04/16 15:12 I made several attempts to contact the urologist at the [facility] urology clinic today , but was never able to speak with him. The patient's WBC was 18,900 with shift on 10/01/2016, today it is down to 9, 100 without shift. The urine had 127 wbc's 3 days ago, and has 52 wbc's today on a similar urine specific gravity. The patient has not been vomiting. For all of the above reasons, I will treat her as an outpatient and bring her back tomorrow for recheck and hopefully, referral. (LINDA QUEZADA) - Vital Signs Vital signs: Temp Pulse Resp BP Pulse Ox 98.0 F 62 16 119/69 98 10/04/16 12:18 10/04/16 12:18 10/04/16 12:18 10/04/16 12:18 10/04/16 12:18 ([address]) (LINDA QUEZADA) - Laboratory Laboratory results interpreted by me: 10/04/16 10/04/16 10/04/16 01:55 08:41 08:41 RDW 14.2 H Creatinine 1.29 H Est GFR (Non-Af Amer) 50 L Alkaline Phosphatase 144 H Albumin 3.2 L Urine Protein 100 H Urine Blood SMALL H Urine Urobilinogen 4.0 H Ur Leukocyte Esterase MODERATE H ([address] [facility]) (LINDA QUEZADA) Discharge <[facility] [facility] - Last Filed: 10/04/16 14:09> <LINDA QUEZADA - Last Filed: 10/04/16 15:42> - Discharge Clinical Impression: Flank pain, Calculus of left ureter Urinary tract infection Qualifiers: Urinary tract infection type: site unspecified Hematuria presence: with hematuria Qualified Code(s): N39.0 - Urinary tract infection, site not specified Condition: Stable Disposition: HOME, SELF-CARE Additional Instructions: Kidney Stone You are passing a kidney stone. These stones are usually due to increased calcium or uric acid concentrations in your urine. Stones within the kidney itself are not painful. The pain occurs as the stone leaves the kidney to pass down the long tube, called the ureter, leading to the bladder. If the stone is small, it will usually pass by itself. Most patients can pass the stone at home. You will usually receive medications for pain, nausea or vomiting, and sometimes a medication to assist in passing the kidney stone. However, if the pain is very severe or if vomiting prevents you from taking oral pain medications, you may need to return for further treatment. Drink three or four quarts of fluids per day. You will be given pain medication (if needed) and urine strainers. Strain all your urine to see if the stone passes. If your doctor has asked you to bring the stone in for analysis, return with the stone once it has passed. Return if pain or vomiting become severe, if you develop a high fever, if you are unable to pass your urine, or if other unusual symptoms occur. Urinary Tract Infection: Your evaluation indicates that you have a urinary tract infection. Continue your antibiotic exactly as prescribed. Drink plenty of fluids -- three to four quarts a day. Certain urine infections require a culture. The doctor obtained a culture , the results will be back in two days. You should call to see if a change in treatment is needed. A repeat urinalysis after you finish treatment is often recommended. The physician will let you know if further testing is required. Call the doctor if you develop fever, chills, flank pain, inability to urinate, or blood in the urine. DRINK PLENTY OF FLUIDS. TAKE THE MEDICATIONS PRESCRIBED FOR PAIN AND NAUSEA. CONTINUE THE ANTIBIOTICS. STOP BREAST FEEDING FOR NOW. PUMP OUT AND DISCARD YOUR BREAST MILK. DRINK PLENTY OF FLUIDS. RETURN TOMORROW MORNING FOR RECHECK. RETURN SOONER IF ANY PROBLEMS. Prescriptions: Oxycodone HCl/Acetaminophen [Percocet 5-325 mg Tablet] 1 - 2 tab PO ASDIR PRN # 15 tablet PRN Reason: Promethazine HCl [Phenergan 25 mg Tablet] 25 mg PO ASDIR PRN #15 tablet PRN Reason: For Nausea/Vomiting Referrals: TEJ GARCIA MD [Primary Care Provider] - Follow up as needed Scribe Attestation: 10/04/16 15:23 I personally performed the services described in the documentation, reviewed and edited the documentation which was dictated to the scribe in my presence, and it accurately records my words and actions. (LINDA QUEZADA) Scribe Documentation - Scribe Written by Scribe:: [address] 10/04/2016 0835 acting as scribe for :: Jair <[address] - Last Filed: 10/04/16 14:09>
[2016-10-04 09:00] LABS: ABSOLUTE BASOPHILS # (AUTO) 0.1 10^3/uL (0.0-0.2); ABSOLUTE EOSINOPHILS # (AUTO) 0.3 10^3/uL (0.0-0.6); ABSOLUTE LYMPHOCYTES (AUTO) 1.9 10^3/uL (0.5-4.7); ABSOLUTE NEUT (AUTO) 5.9 10^3/uL (1.7-8.2); BASOPHILS % (AUTO) 0.7 % (0-2); EOSINOPHILS % (AUTO) 2.8 % (0-6); HEMATOCRIT 37.9 % (36.0-47.0); HEMOGLOBIN 12.3 g/dL (12.0-15.5); LYMPHOCYTES % (AUTO) 20.7 % (13-45); MEAN CORPUSCULAR HEMOGLOBIN 28.2 pg (27.0-33.4); MEAN CORPUSCULAR HGB CONC 32.6 g/dL (32.0-36.0); MEAN CORPUSCULAR VOLUME 86 fl (80-97); MONOCYTES % (AUTO) 10.9 % (3-13); RED BLOOD COUNT 4.39 10^6/uL (3.72-5.28); RED CELL DISTRIBUTION WIDTH 14.2 % (11.5-14.0); SEGMENTED NEUTROPHILS % (AUTO) 64.9 % (42-78); WHITE BLOOD COUNT 9.1 10^3/uL (4.0-10.5)
[2016-10-04 09:16] LABS: ALANINE AMINOTRANSFERASE 36 U/L (9-52); ALBUMIN 3.2 g/dL (3.5-5.0); ALKALINE PHOSPHATASE 144 U/L (38-126); ANION GAP 13 (5-19); ASPARTATE AMINO TRANSFERASE 19 U/L (14-36); BILIRUBIN,TOTAL 0.6 mg/dL (0.2-1.3); BLOOD UREA NITROGEN 11 mg/dL (7-20); CALCIUM 9.5 mg/dL (8.4-10.2); CARBON DIOXIDE 27 mmol/L (22-30); CHLORIDE 103 mmol/L (98-107); CREATININE RESULT 1.29 mg/dL (0.52-1.25); GLUCOSE 95 mg/dL (75-110); POTASSIUM 3.8 mmol/L (3.6-5.0); SODIUM 142.9 mmol/L (137-145); TOTAL PROTEIN 6.9 g/dL (6.3-8.2)
[2016-10-04] MEDS ORDERED: ONDANSETRON HCL INJ/PF 4 MG/2 ML SDV IV ONE ×3 (10:29→15:23)
[2016-10-04] MEDS ORDERED: MORPHINE SULFATE 10 MG/ML INJ IV ONE ×3 (10:29→15:23)
[2016-10-04] MEDS ORDERED: CEFTRIAXONE 1 GM/D5W RTU 50 ML IV ONE (12:18)
[2016-10-04 12:19] VITALS: BP 119/69
== END 2016-10-04 15:54 | disposition home or self-care (01) ==
LOC: ER 01:30
DX: N20.1 Calculus of ureter (principal); N39.0 Urinary tract infection, site not specified; R10.9 Unspecified abdominal pain
CPT/HCPCS: 96376; 99284; 96361; 96375; 96365; 36415; 87086; 85025; 80053; 81001; 76380; J1885; J2270; J2405; J7030; J0696

== ENCOUNTER 2016-10-05 10:01 | Emergency (ER) | payer MEDICAID ==
--- NOTE | 2016-10-05 10:09 | ER Document Report ---
ED Medical Screen (RME) - General Stated Complaint: FOLLOW UP/ FLANK PAIN Mode of Arrival: Ambulatory Information source: Patient Notes: Patient complains of left-sided kidney stone. Patient was advised to return today for a recheck with Dr. Adam. Patient continues with left flank pain. I have greeted and performed a rapid initial assessment of this patient. A comprehensive ED assessment and evaluation of the patient, analysis of test results and completion of the medical decision making process will be conducted by additional ED providers. TRAVEL OUTSIDE OF THE [place] IN LAST 30 DAYS: No - Related Data Allergies/Adverse Reactions: No Known Allergies Allergy (Verified 10/04/16 01:43) Past Medical History Renal/ Medical History: Denies: Hx Peritoneal Dialysis - Immunizations Immunizations up to date: Yes Hx Diphtheria, Pertussis, Tetanus Vaccination: Yes Physical Exam - Vital signs Vitals: Temp Pulse Resp BP Pulse Ox 98.8 F 88 16 123/81 99 10/05/16 10:05 10/05/16 10:05 10/05/16 10:05 10/05/16 10:05 10/05/16 10:05 - Back Back: CVA tenderness - Left flank Course - Vital Signs Vital signs: Temp Pulse Resp BP Pulse Ox 98.8 F 88 16 123/81 99 10/05/16 10:05 10/05/16 10:05 10/05/16 10:05 10/05/16 10:05 10/05/16 10:05
[2016-10-05 10:48] LABS: ABSOLUTE BASOPHILS # (AUTO) 0.1 10^3/uL (0.0-0.2); ABSOLUTE EOSINOPHILS # (AUTO) 0.3 10^3/uL (0.0-0.6); ABSOLUTE LYMPHOCYTES (AUTO) 2.3 10^3/uL (0.5-4.7); ABSOLUTE MONOCYTES (AUTO) 1.2 10^3/uL (0.1-1.4); ABSOLUTE NEUT (AUTO) 4.5 10^3/uL (1.7-8.2); BASOPHILS % (AUTO) 0.7 % (0-2); EOSINOPHILS % (AUTO) 3.7 % (0-6); HEMATOCRIT 36.6 % (36.0-47.0); HEMOGLOBIN 11.9 g/dL (12.0-15.5); HGB HCT DIFFERENCE -0.9; MEAN CORPUSCULAR HEMOGLOBIN 27.9 pg (27.0-33.4); MEAN CORPUSCULAR HGB CONC 32.6 g/dL (32.0-36.0); MEAN CORPUSCULAR VOLUME 86 fl (80-97); MONOCYTES % (AUTO) 14.8 % (3-13); RED BLOOD COUNT 4.27 10^6/uL (3.72-5.28); SEGMENTED NEUTROPHILS % (AUTO) 53.8 % (42-78); WHITE BLOOD COUNT 8.4 10^3/uL (4.0-10.5)
[2016-10-05 10:48] LABS: APPEARANCE,URINE SLIGHTLY-CLOUDY; BILIRUBIN,URINE NEGATIVE (NEGATIVE); GLUCOSE, URINE NEGATIVE (NEGATIVE); KETONES,URINE NEGATIVE (NEGATIVE); LEUKOCYTE ESTERASE,URINE MODERATE (NEGATIVE); NITRITE,URINE NEGATIVE (NEGATIVE); PROTEIN,URINE 30 mg/dL (NEGATIVE); URINE SPECIFIC GRAVITY 1.023
[2016-10-05 10:59] LABS: ALANINE AMINOTRANSFERASE 32 U/L (9-52); ALBUMIN 2.8 g/dL (3.5-5.0); ALKALINE PHOSPHATASE 128 U/L (38-126); ANION GAP 7 (5-19); ASPARTATE AMINO TRANSFERASE 22 U/L (14-36); BILIRUBIN,TOTAL 0.4 mg/dL (0.2-1.3); BLOOD UREA NITROGEN 8 mg/dL (7-20); CALCIUM 9.2 mg/dL (8.4-10.2); CARBON DIOXIDE 30 mmol/L (22-30); CHLORIDE 104 mmol/L (98-107); CREATININE RESULT 1.38 mg/dL (0.52-1.25); GLUCOSE 90 mg/dL (75-110); POTASSIUM 3.9 mmol/L (3.6-5.0); SODIUM 141.2 mmol/L (137-145); TOTAL PROTEIN 6.2 g/dL (6.3-8.2)
--- NOTE | 2016-10-05 11:21 | ER Document Report ---
ED GI/ <PILARLINDA - Last Filed: 10/05/16 11:21> - General Time seen by provider: 11:00 Mode of Arrival: Ambulatory Information source: Patient TRAVEL OUTSIDE OF THE [place] IN LAST 30 DAYS: No - HPI Patient complains to provider of: Flank pain <CARIN ISRAEL - Last Filed: 10/05/16 11:36> - General Chief Complaint: Flank Pain Stated Complaint: FOLLOW UP/ FLANK PAIN Notes: Patient is a 26-year-old female patient emergency department with complaints of continued flank pain. Patient's initial pain was onset on 09/28/2016. Patient delivered at [facility] 09/08/2016. Patient was then seen in the emergency department on 10/01/2016 for some vomiting and pain. Patient was found to have a UTI. Patient's urine was not cultured. Patient was sent home with Keflex. Patient returned to the emergency department on 10/04/2016 for continued symptoms. Patient was found to have kidney stones present on her CT scan. ED physician was unable to get in contact with the urologist to consult. Patient was told to come today to follow-up with a urologist for a possible referral. Patient states her pain is 3 out of 5. Patient took a Percocet approximately 4 hours prior to arrival. Patient has no known allergies. (CARIN ISRAEL) - Related Data Allergies/Adverse Reactions: No Known Allergies Allergy (Verified 10/05/16 10:10) Past Medical History - General Information source: Patient - Social History Smoking Status: Never Smoker Chew tobacco use (# tins/day): No Frequency of alcohol use: None Drug Abuse: None Family History: None Patient has suicidal ideation: No Patient has homicidal ideation: No Renal/ Medical History: Reports: Hx Kidney Stones Surgical Hx: Negative - Immunizations Immunizations up to date: Yes Hx Diphtheria, Pertussis, Tetanus Vaccination: Yes <CARIN ISRAEL - Last Filed: 10/05/16 11:36> Review of Systems - Review of Systems Constitutional: No symptoms reported EENT: No symptoms reported Cardiovascular: No symptoms reported Respiratory: No symptoms reported Gastrointestinal: See HPI Genitourinary: See HPI, Flank pain Female Genitourinary: No symptoms reported Musculoskeletal: No symptoms reported Skin: No symptoms reported Hematologic/Lymphatic: No symptoms reported Neurological/Psychological: No symptoms reported -: Yes All other systems reviewed and negative <LINDYLUCIACARIN - Last Filed: 10/05/16 11:36> Physical Exam - Vital signs Interpretation: Normal - General General appearance: Appears well, Alert In distress: Mild - HEENT Head: Normocephalic, Atraumatic Eyes: Normal Pupils: PERRL Mucous membranes: Moist - Respiratory Respiratory status: No respiratory distress Chest status: Nontender Breath sounds: Normal Chest palpation: Normal - Cardiovascular Rhythm: Regular Heart sounds: Normal auscultation Murmur: No - Abdominal Inspection: Normal - and Distension: No distension Bowel sounds: Normal Tenderness: Nontender Organomegaly: No organomegaly - Back Back: Normal, Tender - tenderness to palpation over left flank - Extremities General upper extremity: Normal inspection, Normal ROM, Normal strength General lower extremity: Normal inspection, Normal ROM, Normal strength - Neurological Neuro grossly intact: Yes Cognition: Normal Orientation: AAOx4 Nic Coma Scale Eye Opening: Spontaneous [place] Coma Scale Verbal: Oriented [place] Coma Scale Motor: Obeys Commands Nic Coma Scale Total: 15 Speech: Normal - Psychological Associated symptoms: Normal affect, Normal mood - Skin Skin Temperature: Warm Skin Moisture: Dry <LINDYLUCIACARIN - Last Filed: 10/05/16 11:36> - Vital signs Vitals: Temp Pulse Resp BP Pulse Ox 98.8 F 88 16 123/81 99 10/05/16 10:05 10/05/16 10:05 10/05/16 10:05 10/05/16 10:05 10/05/16 10:05 (LINDA QUEZADA) Course - Laboratory Result Diagrams: 10/05/16 10:20 10/05/16 10:20 <LINDA QUEZADA - Last Filed: 10/05/16 11:21> - Laboratory Result Diagrams: 10/05/16 10:20 10/05/16 10:20 <CARIN ISRAEL - Last Filed: 10/05/16 11:36> - Vital Signs Vital signs: Temp Pulse Resp BP Pulse Ox 98.8 F 88 16 123/81 99 10/05/16 10:05 10/05/16 10:05 10/05/16 10:05 10/05/16 10:05 10/05/16 10:05 (LINDA QUEZADA) (CARIN ISRAEL) - Laboratory Laboratory results interpreted by me: 10/05/16 10/05/16 10/05/16 10:12 10:20 10:20 Hgb 11.9 L Monocytes % 14.8 H Creatinine 1.38 H Est GFR ( Amer) 56 L Est GFR (Non-Af Amer) 47 L Alkaline Phosphatase 128 H Total Protein 6.2 L Albumin 2.8 L Urine Protein 30 H Urine Blood MODERATE H Urine Urobilinogen 4.0 H Ur Leukocyte Esterase MODERATE H (LINDA QUEZADA) (CARIN ISRAEL) Discharge <LINDA QUEZADA - Last Filed: 10/05/16 11:21> <CARIN ISRAEL - Last Filed: 10/05/16 11:36> - Discharge Clinical Impression: Calculus of left ureter Urinary tract infection Qualifiers: Urinary tract infection type: site unspecified Hematuria presence: with hematuria Qualified Code(s): N39.0 - Urinary tract infection, site not specified Additional Instructions: Continue taking the antibiotics. Continue drinking plenty of fluids. Take the pain medication as needed. [facility] office will be calling you to schedule an appointment for with Dr. Will. If you do not hear from them by tomorrow afternoon, call the office. Prescriptions: Oxycodone HCl/Acetaminophen [Percocet 5-325 mg Tablet] 1 - 2 tab PO ASDIR PRN # 15 tablet PRN Reason: Referrals: [facility] [Provider Group] - 10/07/16 Scribe Attestation: 10/05/16 11:24 I personally performed the services described in the documentation, reviewed and edited the documentation which was dictated to the scribe in my presence, and it accurately records my words and actions. (LINDA QUEZADA) Scribe Documentation - Scribe Written by Scribe:: Carin Israel 10/05/16 11:30 acting as scribe for :: Pilar <CARIN ISRAEL - Last Filed: 10/05/16 11:36>
[2016-10-05 11:42] VITALS: BP 120/64
== END 2016-10-05 11:37 | disposition home or self-care (01) ==
LOC: ER 10:01
DX: N20.1 Calculus of ureter (principal); N39.0 Urinary tract infection, site not specified; R10.9 Unspecified abdominal pain
CPT/HCPCS: 36415; 80053; 81001; 84703; 85025; 99283

== ENCOUNTER → 2016-10-13 | Outpatient (CLI) | payer MEDICAID ==
[2016-10-13 14:36] LABS: PROTHROMBIN TIME 12.2 SEC (11.4-15.4)
[2016-10-13 14:37] LABS: PARTIAL THROMBOPLASTIN TIME 29.3 SEC (23.5-35.8)
== END ==
LOC: OD 13:41
PROVIDERS: ATTEND Urology
DX: N20.0 Calculus of kidney (principal); N20.1 Calculus of ureter
CPT/HCPCS: 36415; 85610; 85730